=== PATIENT | male | born 1965 | race Caucasian/White ===

== ENCOUNTER 2020-07-16 10:09 | Outpatient (REF) | payer OTHER, SELFPAY ==
[2020-07-16 11:13] LABS: MANUAL DIFF FLAG NO
[2020-07-16 11:28] LABS: Basophils Absolute Auto 0.1 X10*3/uL (0.0-0.2); Basophils Percent Auto 0.6 % (0-2); Eosinophils Absolute Auto 0.2 X10*3/uL (0.0-0.4); Eosinophils Percent Auto 2.1 % (0-4); Hematocrit 44.8 % (42-52); Hemoglobin 13.7 g/dl (14.0-18.0); Imm Gran Abs Auto 0.08 X10*3/uL (0.00-0.03); Lymphocytes Absolute Auto 2.3 X10*3/uL (1.2-4.9); Lymphocytes Percent Auto 28.5 % (20-40); Mean Corpuscular HGB Conc 30.6 g/dl (31.0-36.0); Mean Corpuscular Hemoglobin 26.8 pg (27.0-33.0); Mean Corpuscular Volume 87.5 fL (80-98); Mean Platelet Volume 10.4 fL (9.4-12.4); Monocytes Absolute Auto 0.9 X10*3/uL (0.1-1.2); Monocytes Percent Auto 10.7 % (2-11); Neutrophils Absolute Auto 4.6 X10*3/uL (2.0-8.3); Neutrophils Percent Auto 57.1 % (45-73); Platelet Count 241 X10*3/uL (160-400); Red Blood Count 5.12 X10*6/uL (4.60-5.80)
[2020-07-16 11:43] LABS: Alanine Aminotransferase 28 U/L (0-40); Alkaline Phosphatase 121 U/L (39-117); Anion Gap 13 (12-20); Aspartate Amino Transferase 22 U/L (5-37); Bilirubin Total 0.4 mg/dL (0.0-1.0); Blood Urea Nitrogen 23 mg/dL (9-16); Calcium 8.6 mg/dL (8.4-10.2); Carbon Dioxide 26 mmol/L (22-29); Chloride 106 mmol/L (96-108); Cholesterol 152 mg/dL; Estimated Glomerular Filt Rate > 60; Glucose Fasting 120 mg/dL (60-99); HDL Cholesterol 39 mg/dL; Iron 45 mcg/dL (45-160); LDL Cholesterol Calculated 95 mg/dl; Percent Iron Saturation 13 % (15-50); Potassium 4.6 mmol/l (3.3-5.1); Sodium 140 mmol/L (135-145); Total Iron Binding Capacity 339 mcg/dL (228-428); Total Protein 6.7 g/dL (6.5-8.0); Triglycerides 92 mg/dL; Unsaturated Iron Binding 294 ug/dL
[2020-07-16 12:08] LABS: Ferritin 56 ng/mL (20-250); Prostate Specific Antigen < 0.05 ng/mL (<0.05-4.0); Vitamin D 25-OH Total 38.1 ng/mL (>30)
== END 2020-07-16 10:10 | disposition home or self-care (01) ==
LOC: HO.HMGCLDS 10:09
PROVIDERS: PCP Internal Medicine; Visit Provider Internal Medicine
DX: M1A.00X0 Idiopathic chronic gout, unspecified site, without tophus (tophi) (principal); Z00.00 Encounter for general adult medical examination without abnormal findings; I10 Essential (primary) hypertension; D50.9 Iron deficiency anemia, unspecified; E66.01 Morbid (severe) obesity due to excess calories
CPT/HCPCS: 36415; 80053; 80061; 82306; 82728; 83540; 84153; 85025

== ENCOUNTER → 2020-10-23 13:14 | Outpatient (BNVA) | payer OTHER, SELFPAY | PROVIDERS: PCP Internal Medicine; Visit Provider Physician Assistant | DX: M17.11 Unilateral primary osteoarthritis, right knee (principal) | CPT/HCPCS: 20610; J1040 ==

== ENCOUNTER → 2020-12-09 11:27 | Outpatient (BNVA) | payer OTHER, SELFPAY | PROVIDERS: PCP Internal Medicine; Visit Provider Physician Assistant | DX: M17.11 Unilateral primary osteoarthritis, right knee (principal); M17.12 Unilateral primary osteoarthritis, left knee | CPT/HCPCS: 20610; J7318 ==

== ENCOUNTER → 2021-01-22 10:32 | Outpatient (BNVA) | payer SELFPAY | PROVIDERS: PCP Internal Medicine; Visit Provider Physician Assistant Medical | DX: Z02.79 Encounter for issue of other medical certificate (principal) ==

== ENCOUNTER 2021-08-31 10:15 | Outpatient (REF) | payer OTHER, SELFPAY ==
--- NOTE | ~2021-08-31 | XR_ITS ---
EXAMINATION: XR KNEE, LEFT CLINICAL INFORMATION: Left knee pain COMPARISON: Radiographs knees standing AP 04/07/2020, left knee 04/27/2015 TECHNIQUE: Left knee is imaged in 3 views including AP view with weightbearing. FINDINGS: There is no fracture, dislocation, or arthropathy. No focal joint narrowing or erosive change or chondrocalcinosis. Suprapatellar bursa is within limits of normal thickness. Hoffa's fat pad appears normal. There is normal bony mineralization. No periostitis or destructive process. XR/XR knee LT 3V IMPRESSION: Unremarkable left knee.
== END 2021-08-31 10:16 | disposition home or self-care (01) ==
LOC: HO.HMGCX 10:15
PROVIDERS: PCP Internal Medicine; Visit Provider Nurse Practitioner Family
DX: M25.562 Pain in left knee (principal); M17.12 Unilateral primary osteoarthritis, left knee
CPT/HCPCS: 73562

== ENCOUNTER 2021-12-01 08:35 | Outpatient (REF) | payer OTHER, SELFPAY ==
[2021-12-01 11:25] LABS: MANUAL DIFF FLAG NO
[2021-12-01 11:39] LABS: Basophils Absolute Auto 0.1 X10*3/uL (0.0-0.2); Basophils Percent Auto 0.7 % (0-2); Eosinophils Absolute Auto 0.2 X10*3/uL (0.0-0.4); Eosinophils Percent Auto 2.8 % (0-4); Hematocrit 40.8 % (42.0-52.0); Hemoglobin 11.9 g/dl (14.0-18.0); Imm Gran Abs Auto 0.07 X10*3/uL (0.00-0.03); Imm Gran Pct Auto 0.8 % (0.0-0.4); Lymphocytes Absolute Auto 2.2 X10*3/uL (1.2-4.9); Lymphocytes Percent Auto 26.3 % (20-40); Mean Corpuscular HGB Conc 29.2 g/dl (31.0-36.0); Mean Corpuscular Hemoglobin 24.9 pg (27.0-33.0); Mean Corpuscular Volume 85.4 fL (80.0-98.0); Mean Platelet Volume 10.3 fL (9.4-12.4); Monocytes Absolute Auto 1.1 X10*3/uL (0.1-1.2); Monocytes Percent Auto 12.6 % (2-11); Neutrophils Absolute Auto 4.7 x10*3/uL (2.0-8.3); Neutrophils Percent Auto 56.8 % (45-73); Platelet Count 270 X10*3/uL (160-400); Red Blood Count 4.78 X10*6/uL (4.60-5.80); White Blood Count 8.3 X10*3/uL (4.8-10.8)
[2021-12-01 12:15] LABS: Alanine Aminotransferase 33 U/L (0-40); Albumin Level 3.6 g/dL (3.5-5.0); Alkaline Phosphatase 120 U/L (39-117); Anion Gap 12 (12-20); Aspartate Amino Transferase 26 U/L (5-37); Bilirubin Total 0.3 mg/dL (0.0-1.0); Blood Urea Nitrogen 19 mg/dL (9-16); Calcium 8.9 mg/dL (8.4-10.2); Carbon Dioxide 26 mmol/L (22-29); Chloride 108 mmol/L (96-108); Cholesterol 136 mg/dL; Estimated Glomerular Filt Rate > 60; Glucose Fasting 129 mg/dL (60-99); HDL Cholesterol 36 mg/dL; Iron 28 mcg/dL (45-160); LDL Cholesterol Calculated 84 mg/dl; Potassium 4.6 mmol/L (3.3-5.1); Sodium 141 mmol/L (135-145); Total Protein 6.2 g/dL (6.5-8.0); Triglycerides 83 mg/dL
[2021-12-01 12:48] LABS: Ferritin 23 ng/mL (20-250); Thyroid Stimulating Hormone 1.42 uIU/mL (0.32-4.0); Vitamin D 25-OH Total 39.4 ng/mL (>30)
[2021-12-01 12:49] LABS: Percent Iron Saturation 7 % (15-50); Total Iron Binding Capacity 390 mcg/dL (228-428); Unsaturated Iron Binding 362 ug/dL
[2021-12-01 13:26] LABS: PSA,Total (Free>4and<10) < 0.05 ng/mL (0.00-4.00)
== END 2021-12-01 08:36 | disposition home or self-care (01) ==
LOC: HO.LAB 08:35
PROVIDERS: PCP Internal Medicine; Visit Provider Internal Medicine
DX: Z00.00 Encounter for general adult medical examination without abnormal findings (principal); Z12.5 Encounter for screening for malignant neoplasm of prostate; E66.01 Morbid (severe) obesity due to excess calories; I10 Essential (primary) hypertension; M1A.00X0 Idiopathic chronic gout, unspecified site, without tophus (tophi); D50.9 Iron deficiency anemia, unspecified
CPT/HCPCS: 36415; 80053; 80061; 82306; 82728; 83540; 84153; 84443; 85025

== ENCOUNTER → 2021-12-15 07:58 | Outpatient (BNV) | payer BC, OTHER, SELFPAY | PROVIDERS: PCP Internal Medicine; Referring Provider Internal Medicine; Visit Provider Internal Medicine | DX: D50.9 Iron deficiency anemia, unspecified (principal) | CPT/HCPCS: 99203; 99213; 99214 ==

== ENCOUNTER → 2022-01-21 09:09 | Outpatient (BNVA) | payer SELFPAY | PROVIDERS: PCP Internal Medicine; Visit Provider Physician Assistant | DX: Z02.79 Encounter for issue of other medical certificate (principal) ==

== ENCOUNTER 2022-03-18 08:15 | Outpatient (REF) | payer OTHER, SELFPAY | END 2022-03-18 08:16 | disposition home or self-care (01) | LOC: HO.MDS 08:15 | PROVIDERS: PCP Internal Medicine; Visit Provider Internal Medicine | DX: D50.9 Iron deficiency anemia, unspecified (principal) | CPT/HCPCS: J1200; J1750; Q0163 ==

== ENCOUNTER 2022-05-30 08:08 | Outpatient (REF) | payer BC, SELFPAY ==
[2022-05-30 11:11] LABS: MANUAL DIFF FLAG NO
[2022-05-30 11:35] LABS: Basophils Absolute Auto 0.1 X10*3/uL (0.0-0.2); Basophils Percent Auto 0.7 % (0-2); Eosinophils Absolute Auto 0.3 X10*3/uL (0.0-0.4); Eosinophils Percent Auto 3.1 % (0-4); Hematocrit 42.8 % (42.0-52.0); Hemoglobin 12.9 g/dl (14.0-18.0); Imm Gran Abs Auto 0.08 X10*3/uL (0.00-0.03); Imm Gran Pct Auto 0.9 % (0.0-0.4); Lymphocytes Absolute Auto 2.9 X10*3/uL (1.2-4.9); Lymphocytes Percent Auto 32.7 % (20-40); Mean Corpuscular HGB Conc 30.1 g/dl (31.0-36.0); Mean Corpuscular Hemoglobin 25.6 pg (27.0-33.0); Mean Corpuscular Volume 85.1 fL (80.0-98.0); Mean Platelet Volume 10.6 fL (9.4-12.4); Monocytes Absolute Auto 0.9 X10*3/uL (0.1-1.2); Monocytes Percent Auto 9.7 % (2-11); Neutrophils Absolute Auto 4.7 x10*3/uL (2.0-8.3); Neutrophils Percent Auto 52.9 % (45-73); Platelet Count 263 X10*3/uL (160-400); Red Blood Count 5.03 X10*6/uL (4.60-5.80); Red Cell Distribution Width 18.4 % (11.0-16.0); White Blood Count 8.9 X10*3/uL (4.8-10.8)
[2022-05-30 11:42] LABS: Estimated Average Glucose 131 mg/dL; Hemoglobin A1c % 6.2 %
[2022-05-30 11:50] LABS: Alanine Aminotransferase 30 U/L (0-40); Albumin Level 3.8 g/dL (3.5-5.0); Alkaline Phosphatase 115 U/L (39-117); Anion Gap 14 (12-20); Aspartate Amino Transferase 21 U/L (5-37); Bilirubin Total 0.3 mg/dL (0.0-1.0); Blood Urea Nitrogen 24 mg/dL (9-16); Calcium 8.6 mg/dL (8.4-10.2); Carbon Dioxide 25 mmol/L (22-29); Chloride 106 mmol/L (96-108); Cholesterol 138 mg/dL; Estimated Glomerular Filt Rate > 60; Glucose Fasting 154 mg/dL (60-99); HDL Cholesterol 37 mg/dL; LDL Cholesterol Calculated 77 mg/dl; Potassium 4.6 mmol/L (3.3-5.1); Sodium 140 mmol/L (135-145); Total Protein 6.6 g/dL (6.5-8.0); Triglycerides 123 mg/dL
[2022-05-30 12:14] LABS: Thyroid Stimulating Hormone 1.58 uIU/mL (0.32-4.0); Vitamin D 25-OH Total 40.1 ng/mL (>30)
== END 2022-05-30 08:09 | disposition home or self-care (01) ==
LOC: HO.HMGCLDS 08:08
PROVIDERS: PCP Internal Medicine; Visit Provider Internal Medicine
DX: I10 Essential (primary) hypertension (principal); D50.9 Iron deficiency anemia, unspecified; M1A.00X0 Idiopathic chronic gout, unspecified site, without tophus (tophi); E66.01 Morbid (severe) obesity due to excess calories; E74.39 Other disorders of intestinal carbohydrate absorption
CPT/HCPCS: 36415; 80053; 80061; 82306; 83036; 84443; 85025

== ENCOUNTER 2022-09-01 09:24 | Outpatient (REF) | payer BC, SELFPAY ==
[2022-09-01 11:20] LABS: MANUAL DIFF FLAG NO
[2022-09-01 11:43] LABS: Basophils Absolute Auto 0.1 X10*3/uL (0.0-0.2); Basophils Percent Auto 0.6 % (0-2); Eosinophils Absolute Auto 0.2 X10*3/uL (0.0-0.4); Eosinophils Percent Auto 2.3 % (0-4); Hemoglobin 13.7 g/dl (14.0-18.0); Imm Gran Abs Auto 0.07 X10*3/uL (0.00-0.03); Imm Gran Pct Auto 0.8 % (0.0-0.4); Lymphocytes Percent Auto 22.1 % (20-40); Mean Corpuscular HGB Conc 30.4 g/dl (31.0-36.0); Mean Corpuscular Hemoglobin 26.4 pg (27.0-33.0); Mean Corpuscular Volume 86.7 fL (80.0-98.0); Mean Platelet Volume 10.4 fL (9.4-12.4); Monocytes Percent Auto 10.9 % (2-11); Neutrophils Absolute Auto 5.7 x10*3/uL (2.0-8.3); Neutrophils Percent Auto 63.3 % (45-73); Platelet Count 263 X10*3/uL (160-400); Red Blood Count 5.19 X10*6/uL (4.60-5.80); Red Cell Distribution Width 15.1 % (11.0-16.0)
[2022-09-01 11:53] LABS: Estimated Average Glucose 117 mg/dL; Hemoglobin A1c % 5.7 %
[2022-09-01 14:05] LABS: Alanine Aminotransferase 29 U/L (0-40); Albumin Level 3.9 g/dL (3.5-5.0); Alkaline Phosphatase 104 U/L (39-117); Anion Gap 11 (12-20); Aspartate Amino Transferase 22 U/L (5-37); Bilirubin Total 0.5 mg/dL (0.0-1.0); Blood Urea Nitrogen 20 mg/dL (9-16); Calcium 9.1 mg/dL (8.4-10.2); Carbon Dioxide 26 mmol/L (22-29); Chloride 108 mmol/L (96-108); Cholesterol 150 mg/dL; Estimated Glomerular Filt Rate > 60; Glucose Fasting 123 mg/dL (60-99); HDL Cholesterol 35 mg/dL; LDL Cholesterol Calculated 92 mg/dl; Potassium 4.3 mmol/L (3.3-5.1); Sodium 141 mmol/L (135-145); Thyroid Stimulating Hormone 0.93 uIU/mL (0.32-4.0); Total Protein 6.5 g/dL (6.5-8.0); Triglycerides 116 mg/dL
== END 2022-09-01 09:25 | disposition home or self-care (01) ==
LOC: HO.HMGCLDS 09:24
PROVIDERS: PCP Internal Medicine; Visit Provider Internal Medicine
DX: E74.39 Other disorders of intestinal carbohydrate absorption (principal)
CPT/HCPCS: 36415; 80053; 80061; 83036; 84443; 85025

== ENCOUNTER → 2023-01-17 09:06 | Outpatient (BNVA) | payer SELFPAY | PROVIDERS: PCP Internal Medicine; Visit Provider Internal Medicine | DX: Z02.79 Encounter for issue of other medical certificate (principal) ==

== ENCOUNTER 2023-07-05 09:42 | Outpatient (REF) | payer BC, SELFPAY ==
[2023-07-05 09:57] LABS: MANUAL DIFF FLAG NO
[2023-07-05 10:19] LABS: Basophils Absolute Auto 0.1 X10*3/uL (0.0-0.2); Basophils Percent Auto 0.7 % (0-2); Eosinophils Absolute Auto 0.3 X10*3/uL (0.0-0.4); Eosinophils Percent Auto 2.4 % (0-4); Hematocrit 42.6 % (42.0-52.0); Hemoglobin 12.6 g/dl (14.0-18.0); Imm Gran Abs Auto 0.09 X10*3/uL (0.00-0.03); Imm Gran Pct Auto 0.9 % (0.0-0.4); Lymphocytes Absolute Auto 2.5 X10*3/uL (1.2-4.9); Lymphocytes Percent Auto 24.2 % (20-40); Mean Corpuscular HGB Conc 29.6 g/dl (31.0-36.0); Mean Corpuscular Hemoglobin 23.9 pg (27.0-33.0); Mean Corpuscular Volume 80.7 fL (80.0-98.0); Mean Platelet Volume 10.2 fL (9.4-12.4); Monocytes Absolute Auto 1.1 X10*3/uL (0.1-1.2); Monocytes Percent Auto 10.7 % (2-11); Neutrophils Absolute Auto 6.4 x10*3/uL (2.0-8.3); Neutrophils Percent Auto 61.1 % (45-73); Platelet Count 291 X10*3/uL (160-400); Red Blood Count 5.28 X10*6/uL (4.60-5.80); Red Cell Distribution Width 16.4 % (11.0-16.0); White Blood Count 10.5 X10*3/uL (4.8-10.8)
[2023-07-05 10:29] LABS: Estimated Average Glucose 140 mg/dL; Hemoglobin A1c % 6.5 % (<6.0)
[2023-07-05 10:55] LABS: Alanine Aminotransferase 30 U/L (0-40); Albumin Level 3.9 g/dL (3.5-5.0); Alkaline Phosphatase 116 U/L (39-117); Anion Gap 14 (12-20); Aspartate Amino Transferase 25 U/L (5-37); Bilirubin Total 0.4 mg/dL (0.0-1.0); Blood Urea Nitrogen 21 mg/dL (9-16); Calcium 9.7 mg/dL (8.4-10.2); Carbon Dioxide 25 mmol/L (22-29); Chloride 106 mmol/L (96-108); Estimated Glomerular Filt Rate > 60; Glucose Fasting 140 mg/dL (60-99); Potassium 4.2 mmol/L (3.3-5.1); Sodium 141 mmol/L (135-145); Total Protein 7.1 g/dL (6.5-8.0)
[2023-07-05 11:12] LABS: Thyroid Stimulating Hormone 1.52 uIU/mL (0.32-4.0)
== END 2023-07-05 09:43 | disposition home or self-care (01) ==
LOC: HO.LAB 09:42
PROVIDERS: PCP Internal Medicine; Visit Provider Internal Medicine
DX: E66.01 Morbid (severe) obesity due to excess calories (principal); I10 Essential (primary) hypertension; M1A.00X0 Idiopathic chronic gout, unspecified site, without tophus (tophi); D50.9 Iron deficiency anemia, unspecified; E74.39 Other disorders of intestinal carbohydrate absorption
CPT/HCPCS: 36415; 80053; 83036; 84443; 85025

== ENCOUNTER 2023-08-16 09:55 | Outpatient (AMB) | payer BC, SELFPAY ==
--- NOTE | 2023-08-16 09:56 | MHC.OFFVIS ---
Intake Vital Signs 08/16/23 09:59 Height 5 ft 8 in Weight 385 lb BMI 58.5 BP 124/82 Blood Pressure Location Lt brachial Position Sitting Pulse 58 Pulse Source Pulse Oximeter Pulse Oximetry (%) 97 Oxygen Delivery Method Room Air Intake Visit Reasons: ofelia Intake Note: pt is here to talk about sleep apnea, Subsorter Required: No Allergies Iodinated Contrast Media [IV CONTRAST] Allergy (Mild, Verified 08/16/23 10:28) HIVES IVP Dye Allergy (Intermediate, Uncoded 08/16/23 10:28) hives Dye [facility] Blue 1 Allergy (Unknown, Uncoded 08/16/23 10:28) hives Medication List - Last Reconciled 08/16/23 by Kylie Barajas MD allopurinol 300 mg PO DAILY amlodipine 10 mg PO DAILY [centrum multivitamin 1 tab PO DAILY] lisinopril 20 mg PO BID metoprolol tartrate 50 mg PO BID [Vitamin C 1 tab PO DAILY] [Vitamin D3 50,000 multiple units PO 2XW] Do you need a note to return to daycare/school/sports/work: No HPI ofelia HPI Details This 58 years old very pleasant gentleman is being seen for the 1st time in relation to his morbid obesity and sleep apnea. He has been grossly obese throughout his adult life. He has not participated in any regular weight management program. Last year he was started on Dulaglutide injections hoping to make him lose weight. But he developed serious side effects and had to stop it . He is not in favor of undergoing any bariatric surgery. He is trying to lose weight on his own with dietary restriction. 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 He claims that he sleeps good, he always sleeps on his right side and lateral position. According to his he may do some snoring, He sleeps about 6 hours per night, does not get enough sleep because of his late hours of work. He does feel tired during the daytime. After lunch he has tendency to doze off. But he has not fallen asleep in appropriately at any time. This gentleman underwent extensive surgical procedures about 20 years ago, in [place], due to complicated surgery for renal stone. He also has had chronic low-grade anemia and due to malabsorption of iron. Now he is being treated with iron infusions every 6-12 months, lately his hemoglobin/hematocrit is staying stable. He has mild hypertension and borderline type 2 diabetes mellitus. He is nonsmoker, quit more than 20 years ago. He does not have any respiratory problem. He has painful knees due to osteoarthritis, has had intra-articular steroid injections , He is not able to walk much or climb any stairs. [facility] Medical History (Updated 08/16/23 @ 11:31 by Kylie Barajas MD) Somnolence, daytime Snoring OFELIA (obstructive sleep apnea) Morbid obesity Kidney stone on right side Deviated septum COVID LVH (left ventricular hypertrophy) Incisional hernia Plantar fasciitis Varicella zoster Renal lithiasis Vitamin D deficiency Iron deficiency anemia Obesity HTN (hypertension) Surgical History S/P left knee arthroscopy Social History Household Members: Spouse Housing: House Are you a primary career development coordinator/teacher to a significant other at home: No Alcohol intake: current Alcohol intake frequency: holidays/special occasions only Patient Tobacco Use Status: Former Tobacco user Tobacco use type: Cigarette Cigarette Packs Per Day: 1.5 Years Smoked: 14 service: No Current occupational status: employed Review of Systems Const All systems reviewed & are unremarkable except as noted in HPI and below Eyes Reports no additional complaints ENT Reports nasal obstruction (Has had septoplasty in the past) Card Denies chest pain at rest, Denies irregular heart rhythm, Denies leg edema and Reports dyspnea (Mild on exertion) Resp Denies cough, Reports dyspnea (Mild on exertion) and Denies wheezing GI Reports no additional complaints Reports no additional complaints Musc Reports arthralgias (Both knees) Skin/Breast Reports system reviewed and no additional complaints, except as documented Neuro Reports no additional complaints Psych Reports no additional complaints Endo Reports no additional complaints Omar/Lymph Reports no additional complaints Aller/Immun Reports no additional complaints and Denies wheezing Physical Exam Vital Signs: Last Vital Signs Pulse 58 08/16/23 09:59 BP 124/82 08/16/23 09:59 Pulse Ox 97 08/16/23 09:59 Oxygen Delivery Method Room Air 08/16/23 09:59 BMI result Body Mass Index 58.5 He is visibily morbidly obese, otherwise looks healthy Const General: comfortable, no acute distress, alert and awake Orientation/consciousness: patient oriented x3 HEENT Head: Yes normal to inspection General nose exam: No nasal polyps present and No nasal discharge present Face and sinus: Yes sinuses nontender Mouth: oropharynx abnormals (Oropharynx is crowded, Mallampati class 3) Throat: Yes posterior oropharynx normal Eyes General: appearance normal, both eyes and all related structures Neck Neck: Yes normal visual inspection, Yes no lymphadenopathy, Yes trachea midline, Yes no JVD and Yes other (Neck circumference 18-1/2 inch) Thyroid: Thyroid normal Chest Chest palpation & inspection: normal inspection of the chest, normal palpation of entire chest wall and no tenderness Resp Effort & Inspection: normal respiratory effort Auscultation: clear to auscultation bilaterally, no crackles and no wheezes Cardio Palpation: normal PMI Rate: regular rate Rhythm: regular rhythm Heart sounds: no gallops and no murmurs Peripheral pulses: Peripheral pulses 2+ throughout GI Palpation (GI): Soft to palpation, nontender, No hepatosplenomegaly present, no masses and Other GI palpation findings present (Abdomen is grossly obese and protuberant, there are multiple surgical scars) Auscultation: normal bowel sounds Back/Spine/Pelvis Thoracic/Lumbar Spine: thoracic and lumbar spine normal to inspection Skin General skin exam: no rashes or lesions noted Neuro General: patient oriented x3 and no focal motor deficits Cranial nerves: Yes CN's II-XII intact bilaterally Extrem General: Yes normal to inspection, Yes no clubbing, cyanosis or edema and Yes no calf tenderness Psych Appearance: grossly normal and well kempt Speech and movement: Normal speech and movement present Assessment & Plan Assessment & Plan (1) Morbid obesity: Comment: BMI= 58.5 HE IS FULLY AWARE. OF THIS PROBLEM. DOES NOT WANT TO JOIN WEIGHT MANAGEMENT PROGRAM AND ABSOLUTELY IS NOT IN FAVOR OF HAVING ANY BARIATRIC SURGERY. IMPORTANCE OF WEIGHT REDUCTION EXPLAINED TO HIM. Code(s): E66.01 - Morbid (severe) obesity due to excess calories (2) OFELIA (obstructive sleep apnea): Comment: BECAUSE OF HIS SUPER MORBID OBESITY OFELIA IS HIGHLY SUSPECTED. HE DOES ADMIT OF SNORING, AND SOME DAYTIME SOMNOLENCE. HOME-BASED SLEEP STUDY IS ORDERED. WILL SEE HIM AFTER THE HOME-BASED SLEEP STUDY. Code(s): G47.33 - Obstructive sleep apnea (adult) (pediatric) Orders: Orders RT home sleep study Today E66.01 - Morbid (severe) obesity due to excess calories, R06.83 - Snoring, R40.0 - Somnolence Coding Level of Care Code New Pt Level 4 (48406) Diagnoses Morbid obesity E66.01 OFELIA (obstructive sleep apnea) G47.33
[2023-08-16 09:59] VITALS: BP 124/82; PULSE 58; O2SAT 97; BMI 58.5
== END 2023-08-16 10:27 | disposition home or self-care (01) ==
PROVIDERS: PCP Internal Medicine; Referring Provider Internal Medicine; Visit Provider Internal Medicine
DX: E66.01 Morbid (severe) obesity due to excess calories (principal); G47.33 Obstructive sleep apnea (adult) (pediatric)
CPT/HCPCS: 99204

== ENCOUNTER → 2023-08-16 09:55 | Outpatient (BNVA) | payer BC, SELFPAY | PROVIDERS: PCP Internal Medicine; Referring Provider Internal Medicine; Visit Provider Internal Medicine ==

== ENCOUNTER 2023-11-07 08:57 | Outpatient (REF) | payer BC, SELFPAY ==
[2023-11-07 11:18] LABS: MANUAL DIFF FLAG NO
[2023-11-07 11:31] LABS: Basophils Absolute Auto 0.1 X10*3/uL (0.0-0.2); Basophils Percent Auto 0.8 % (0-2); Eosinophils Absolute Auto 0.3 X10*3/uL (0.0-0.4); Hematocrit 38.9 % (42.0-52.0); Hemoglobin 11.8 g/dl (14.0-18.0); Imm Gran Abs Auto 0.08 X10*3/uL (0.00-0.03); Imm Gran Pct Auto 0.9 % (0.0-0.4); Lymphocytes Absolute Auto 2.4 X10*3/uL (1.2-4.9); Lymphocytes Percent Auto 26.2 % (20-40); Mean Corpuscular HGB Conc 30.3 g/dl (31.0-36.0); Mean Corpuscular Hemoglobin 24.7 pg (27.0-33.0); Mean Corpuscular Volume 81.4 fL (80.0-98.0); Mean Platelet Volume 10.5 fL (9.4-12.4); Monocytes Absolute Auto 1.1 X10*3/uL (0.1-1.2); Monocytes Percent Auto 12.1 % (2-11); Neutrophils Absolute Auto 5.2 x10*3/uL (2.0-8.3); Platelet Count 287 X10*3/uL (160-400); Red Blood Count 4.78 X10*6/uL (4.60-5.80); Red Cell Distribution Width 16.4 % (11.0-16.0); White Blood Count 9.1 X10*3/uL (4.8-10.8)
[2023-11-07 11:43] LABS: Estimated Average Glucose 126 mg/dL
[2023-11-07 12:11] LABS: Alanine Aminotransferase 23 U/L (0-40); Albumin Level 3.7 g/dL (3.5-5.0); Alkaline Phosphatase 110 U/L (39-117); Anion Gap 13 (12-20); Aspartate Amino Transferase 20 U/L (5-37); Bilirubin Total 0.3 mg/dL (0.0-1.0); Blood Urea Nitrogen 18 mg/dL (9-16); Calcium 9.1 mg/dL (8.4-10.2); Carbon Dioxide 26 mmol/L (22-29); Chloride 108 mmol/L (96-108); Cholesterol 140 mg/dL (<200); Estimated Glomerular Filt Rate > 60; Glucose Fasting 140 mg/dL (60-99); HDL Cholesterol 34 mg/dL (>40); Iron 28 mcg/dL (45-160); LDL Cholesterol Calculated 86 mg/dL (<100); Percent Iron Saturation 8 % (15-50); Potassium 4.5 mmol/L (3.3-5.1); Sodium 142 mmol/L (135-145); Total Iron Binding Capacity 334 mcg/dL (228-428); Total Protein 6.7 g/dL (6.5-8.0); Triglycerides 102 mg/dL (<150); Unsaturated Iron Binding 306 ug/dL; Uric Acid 3.6 mg/dL (3.4-7.0)
[2023-11-07 12:20] LABS: Ferritin 18 ng/mL (20-250)
== END 2023-11-07 08:58 | disposition home or self-care (01) ==
LOC: HO.HMGCLDS 08:57
PROVIDERS: PCP Internal Medicine; Visit Provider Internal Medicine
DX: E66.01 Morbid (severe) obesity due to excess calories (principal); I10 Essential (primary) hypertension; M1A.00X0 Idiopathic chronic gout, unspecified site, without tophus (tophi); D50.9 Iron deficiency anemia, unspecified; E74.39 Other disorders of intestinal carbohydrate absorption
CPT/HCPCS: 36415; 80053; 80061; 82728; 83036; 83540; 84550; 85025

== ENCOUNTER → 2023-12-06 09:03 | Outpatient (REF) | payer BC, SELFPAY | LOC: HO.SL 09:03 | PROVIDERS: PCP Internal Medicine; Visit Provider Internal Medicine | DX: G47.33 Obstructive sleep apnea (adult) (pediatric) (principal); E66.01 Morbid (severe) obesity due to excess calories; R06.83 Snoring; R40.0 Somnolence | CPT/HCPCS: 95806 ==

== ENCOUNTER → 2023-12-06 09:18 | Outpatient (BNV) | payer BC, SELFPAY | PROVIDERS: PCP Internal Medicine; Visit Provider Internal Medicine | DX: G47.33 Obstructive sleep apnea (adult) (pediatric) (principal) | CPT/HCPCS: 95806 ==

== ENCOUNTER 2023-12-20 10:28 | Outpatient (AMB) | payer BC, SELFPAY ==
[2023-12-20 10:33] VITALS: BP 110/72; PULSE 58; O2SAT 97; BMI 60.0
--- NOTE | 2023-12-20 10:33 | MHC.OFFVIS ---
Intake Vital Signs 12/20/23 10:33 Height 5 ft 8 in Weight 394 lb 10.039 oz BMI 60.0 BP 110/72 Blood Pressure Location Lt brachial Position Sitting Pulse 58 Pulse Source Pulse Oximeter Pulse Oximetry (%) 97 Oxygen Delivery Method Room Air Intake Visit Reasons: Obstructive sleep apnea Intake Note: pt is here for follow up of sleep study Hematology Oncology Consultant Required: No Allergies Iodinated Contrast Media [IV CONTRAST] Allergy (Mild, Verified 12/20/23 10:40) HIVES IVP Dye Allergy (Intermediate, Uncoded 12/20/23 10:40) hives Dye [facility] Blue 1 Allergy (Unknown, Uncoded 12/20/23 10:40) hives Medication List - Last Reconciled 12/20/23 by Kylie Barajas MD allopurinol 300 mg PO DAILY amlodipine 10 mg PO DAILY [centrum multivitamin 1 tab PO DAILY] lisinopril 20 mg PO BID metoprolol tartrate 50 mg PO BID [Vitamin C 1 tab PO DAILY] [Vitamin D3 50,000 multiple units PO 2XW] Do you need a note to return to daycare/school/sports/work: No HPI Obstructive sleep apnea HPI Details 58 YEARS OLD VERY PLEASANT GENTLEMAN WHO IS A CASE OF SUPER MORBID OBESITY, COMES FOR FOLLOW-UP AFTER HIS SLEEP STUDY. HE CONTINUES TO HAVE DIFFICULTY IN SLEEPING DUE TO FREQUENT AWAKENING, AND DOES HAVE SOME DAYTIME FATIGUE AND SLEEPINESS. HE IS NOT ABLE TO LOSE MUCH WEIGHT. THE HOME-BASED SLEEP STUDY IS ABNORMAL AND WOULD BE DESCRIBED BELOW [facility] Medical History (Updated 12/20/23 @ 12:10 by Kylie Barajas MD) Nocturnal hypoxemia due to obesity Somnolence, daytime Snoring DAISY (obstructive sleep apnea) Morbid obesity Kidney stone on right side Deviated septum COVID LVH (left ventricular hypertrophy) Incisional hernia Plantar fasciitis Varicella zoster Renal lithiasis Vitamin D deficiency Iron deficiency anemia Obesity HTN (hypertension) Surgical History S/P left knee arthroscopy Social History Household Members: Spouse Housing: House Are you a primary sub acute care nurse to a significant other at home: No Alcohol intake: current Alcohol intake frequency: holidays/special occasions only Patient Tobacco Use Status: Former Tobacco user Tobacco use type: Cigarette Cigarette Packs Per Day: 1.5 Years Smoked: 14 service: No Current occupational status: employed Review of Systems Const All systems reviewed & are unremarkable except as noted in HPI and below Eyes Reports no additional complaints ENT Reports nasal obstruction (Has had septoplasty in the past) Card Denies chest pain at rest, Denies irregular heart rhythm, Denies leg edema and Reports dyspnea (Mild on exertion) Resp Denies cough, Reports dyspnea (Mild on exertion) and Denies wheezing GI Reports no additional complaints Reports no additional complaints Musc Reports arthralgias (Both knees) Skin/Breast Reports system reviewed and no additional complaints, except as documented Neuro Reports no additional complaints Psych Reports no additional complaints Endo Reports no additional complaints Omar/Lymph Reports no additional complaints Aller/Immun Reports no additional complaints and Denies wheezing Physical Exam Vital Signs: Last Vital Signs Pulse 58 12/20/23 10:33 BP 110/72 12/20/23 10:33 Pulse Ox 97 12/20/23 10:33 Oxygen Delivery Method Room Air 12/20/23 10:33 BMI result Body Mass Index 60.0 He is visibily morbidly obese, otherwise looks healthy Const General: comfortable, no acute distress, alert and awake Orientation/consciousness: patient oriented x3 HEENT Head: Yes normal to inspection General nose exam: No nasal polyps present and No nasal discharge present Face and sinus: Yes sinuses nontender Mouth: oropharynx abnormals (Oropharynx is crowded, Mallampati class 3) Throat: Yes posterior oropharynx normal Eyes General: appearance normal, both eyes and all related structures Neck Neck: Yes normal visual inspection, Yes no lymphadenopathy, Yes trachea midline, Yes no JVD and Yes other (Neck circumference 18-1/2 inch) Thyroid: Thyroid normal Chest Chest palpation & inspection: normal inspection of the chest, normal palpation of entire chest wall and no tenderness Resp Effort & Inspection: normal respiratory effort Auscultation: clear to auscultation bilaterally, no crackles and no wheezes Cardio Palpation: normal PMI Rate: regular rate Rhythm: regular rhythm Heart sounds: no gallops and no murmurs Peripheral pulses: Peripheral pulses 2+ throughout GI Palpation (GI): Soft to palpation, nontender, No hepatosplenomegaly present, no masses and Other GI palpation findings present (Abdomen is grossly obese and protuberant, there are multiple surgical scars) Auscultation: normal bowel sounds Back/Spine/Pelvis Thoracic/Lumbar Spine: thoracic and lumbar spine normal to inspection Skin General skin exam: no rashes or lesions noted Neuro General: patient oriented x3 and no focal motor deficits Cranial nerves: Yes CN's II-XII intact bilaterally Extrem General: Yes normal to inspection, Yes no clubbing, cyanosis or edema and Yes no calf tenderness Psych Appearance: grossly normal and well kempt Speech and movement: Normal speech and movement present Results Reviewed Results Reviewed: HOME-BASED SLEEP STUDY ON 12/06/2023. FINDINGS ARE REVIEWED. WITH PATIENT TOTAL SLEEP TIME AHI 7. SUPINE POSITION AHI 15 SNORING FOR 21% OF THE SLEEP TIME. NOCTURNAL HYPOXEMIA WITH AVERAGE O2 SAT 90% LOWEST O2 SAT 73% AND O2 SAT BELOW 88% FOR 28 MINUTES , INDICATING SLEEP-RELATED NOCTURNAL HYPOXEMIA Assessment & Plan Assessment & Plan (1) Morbid obesity: Comment: BMI= 60 .0 HE IS FULLY AWARE. OF THIS PROBLEM. DOES NOT WANT TO JOIN WEIGHT MANAGEMENT PROGRAM AND ABSOLUTELY IS NOT IN FAVOR OF HAVING ANY BARIATRIC SURGERY. IMPORTANCE OF WEIGHT REDUCTION EXPLAINED TO HIM. Code(s): E66.01 - Morbid (severe) obesity due to excess calories Plan: ABOVE (2) DAISY (obstructive sleep apnea): Comment: SLEEP STUDY CONFIRMS THAT HE DOES HAVE OBSTRUCTIVE SLEEP APNEA, IT IS MILD, TOTAL SLEEP TIME AHI 7.0. SUPINE POSITION AHI IS 15 , AND HE SLEPT FOR 75 MINUTES IN THE SUPINE POSITION. ALONG WITH THAT HE DOES HAVE NOCTURNAL HYPOXEMIA DUE TO SLEEP-RELATED HYPOVENTILATION. Code(s): G47.33 - Obstructive sleep apnea (adult) (pediatric) Plan: ORDINARILY I WOULD RECOMMEND CONSERVATIVE MEASURES INCLUDING AGGRESSIVE WEIGHT REDUCTION AND POSITION THERAPY. HOWEVER IN HIS CASE THE POTENTIAL FOR LOSING WEIGHT IN THE NEAR FUTURE IS VERY SMALL, AND HE MAY NOT FULLY COMPLY WITH POSITION THERAPY. ALSO DUE TO ASSOCIATED NOCTURNAL HYPOXEMIA, I THINK IT IS PREFERABLE FOR HIM TO USE CPAP. THIS WAS DISCUSSED WITH HIM THOROUGHLY, OF COURSE HE IS SOMEWHAT DISAPPOINTED , AND IS SOMEWHAT APPREHENSIVE ABOUT USING THE CPAP. BUT I WAS ABLE TO CONVINCE HIM TO USE THE CPAP AND AT LEAST TRY, WHILE HE WILL BE DOING HIS BEST TO LOSE WEIGHT. HENCE THE CPAP WITH AUTO PAP MODE AND PRESSURE SETTING OF 6-20 CM IS BEING ORDERED. HE WILL GET MORE INSTRUCTIONS ABOUT THE USAGE WHEN HE GETS HIS EQUIPMENT. AND WOULD BE MONITORED CLOSELY. (3) Nocturnal hypoxemia due to obesity: Comment: HIS O2 SAT WAS BELOW 88% 28 MINUTES AND THE AVERAGE O2 SAT WAS RELATIVELY ON THE LOW SIDE, 90%. Code(s): E66.9 - Obesity, unspecified; G47.36 - Sleep related hypoventilation in conditions classified elsewhere Plan: I THINK WITH THE USE OF CPAP THE HYPOXEMIA WILL BE CORRECTED. ONCE HE STARTS USING CPAP REGULARLY WE WILL DO AN OVERNIGHT OXIMETRY RECORDING TO MAKE SURE, THERE IS NO RESIDUAL HYPOXEMIA. Coding Level of Care Code Est Pt Level 3 (57350) Diagnoses Morbid obesity E66.01 DAISY (obstructive sleep apnea) G47.33 Nocturnal hypoxemia due to obesity E66.9; G47.36
== END 2023-12-20 11:02 | disposition home or self-care (01) ==
PROVIDERS: PCP Internal Medicine; Visit Provider Internal Medicine
DX: E66.01 Morbid (severe) obesity due to excess calories (principal); G47.33 Obstructive sleep apnea (adult) (pediatric); E66.9 Obesity, unspecified; G47.36 Sleep related hypoventilation in conditions classified elsewhere
CPT/HCPCS: 99213

== ENCOUNTER → 2023-12-28 10:07 | Outpatient (REF) | payer BC, SELFPAY | LOC: HO.SL 10:07 | PROVIDERS: PCP Internal Medicine; Visit Provider Internal Medicine | DX: Z13.89 Encounter for screening for other disorder (principal) ==

== ENCOUNTER 2024-01-11 11:00 | Outpatient (RCR) | payer BC, SELFPAY ==
[2023-12-20 09:05] VITALS: BP 112/63; PULSE 57; RESP 20; TEMP 36.5; O2SAT 97; BMI 57.0
[2023-12-20] MEDS: Iron Sucrose Complex 200 MG in 0.9 % Sodium Chloride 100 ML 440 MG IV (09:11)
[2023-12-28 10:09] VITALS: BP 147/83; PULSE 58; RESP 20; TEMP 36.1; O2SAT 97
[2023-12-28] MEDS: Iron Sucrose Complex 200 MG in 0.9 % Sodium Chloride 100 ML 440 MG IV (10:20)
[2024-01-04 10:06] VITALS: BP 119/75; PULSE 57; RESP 20; TEMP 36.2; O2SAT 97
[2024-01-04] MEDS: Iron Sucrose Complex 200 MG in 0.9 % Sodium Chloride 100 ML 440 MG IV (10:19)
[2024-01-04] MEDS: 0.9 % Sodium Chloride Flush 10 ML SYRINGE 5 ML IVFLUSH (10:37)
[2024-01-11 10:24] VITALS: BP 143/82; PULSE 59; RESP 20; TEMP 36.3; O2SAT 97
[2024-01-11] MEDS: 0.9 % Sodium Chloride Flush 10 ML SYRINGE 5 ML IVFLUSH ×2 (10:31→10:48)
[2024-01-11] MEDS: Iron Sucrose Complex 200 MG in 0.9 % Sodium Chloride 100 ML 440 MG IV (10:31)
== END 2024-01-11 11:36 | disposition home or self-care (01) ==
LOC: HO.INF 11:00
PROVIDERS: Visit Provider Internal Medicine
DX: D50.9 Iron deficiency anemia, unspecified (principal)
CPT/HCPCS: 96365; 96374; J1756

== ENCOUNTER 2024-01-17 14:19 | Outpatient (REF) | payer BC, SELFPAY ==
--- NOTE | ~2024-01-17 | XR_ITS ---
EXAMINATION: CR RIGHT KNEE. CR LEFT KNEE. CR RIGHT HIP. CLINICAL INFORMATION: Pain. COMPARISON: Left knee films dated 08/31/2021. Bilateral knee films dated 04/07/2020.. Two-view abdomen dated 09/20/2016. TECHNIQUE: 2 upright views of the right knee. 2 upright views of the left knee. AP and frog-leg lateral views of the right hip. FINDINGS: Right knee: There is no acute fracture or dislocation. Mild joint space narrowing and minimal spurring is seen in the medial and patellofemoral compartments with relative preservation of the lateral joint space height. No joint calcifications or significant knee joint effusion. Patellar tendon shadow are intact. No significant prepatellar soft tissue swelling. Left knee: No acute fracture or dislocation. Severe joint space narrowing and mild spurring in the medial femoral compartment and mild joint space narrowing and spurring in the patellofemoral compartment seen with preservation of the lateral femoral compartment. Findings have progressed compared to the prior exam. No joint or soft tissue calcifications. No significant knee joint effusion or prepatellar soft tissue swelling. Right hip: No acute fracture or dislocation. Minimal superior joint space narrowing and spurring seen at the right hip joint, similar to the previous exam. No joint calcifications. Calcification seen projected over the lower right pelvis, possibly vascular. Included right sacroiliac joint intact and unremarkable. XR/XR hip RT min 2V IMPRESSION: * No acute fracture of the right knee or left knee or right hip. * Mild degenerative changes in the medial and patellofemoral compartments of the right knee. * Severe degenerative change in the medial femoral compartment of the left knee and mild degenerative changes in the patellofemoral compartment of the left knee. * Mild degenerative changes in the right hip joint, similar to the previous exam.
== END 2024-01-17 14:20 | disposition home or self-care (01) ==
LOC: HO.HMGCX 14:19
PROVIDERS: PCP Internal Medicine; Visit Provider Internal Medicine
DX: M25.551 Pain in right hip (principal); M25.562 Pain in left knee; M25.561 Pain in right knee
CPT/HCPCS: 73502; 73560

== ENCOUNTER → 2024-01-18 09:12 | Outpatient (BNVA) | payer SELFPAY | PROVIDERS: PCP Internal Medicine; Visit Provider Physician Assistant Medical | DX: Z02.79 Encounter for issue of other medical certificate (principal) ==

== ENCOUNTER → 2024-02-14 11:21 | Outpatient (BNVA) | payer BC, SELFPAY | PROVIDERS: PCP Internal Medicine; Visit Provider Internal Medicine ==

== ENCOUNTER 2024-06-28 08:29 | Outpatient (REF) | payer BC, SELFPAY ==
[2024-06-28 10:15] LABS: MANUAL DIFF FLAG NO
[2024-06-28 10:27] LABS: Basophils Absolute Auto 0.1 X10*3/uL (0.0-0.2); Basophils Percent Auto 0.5 % (0-2); Eosinophils Absolute Auto 0.2 X10*3/uL (0.0-0.4); Eosinophils Percent Auto 2.1 % (0-4); Hematocrit 43.6 % (42.0-52.0); Hemoglobin 13.4 g/dl (14.0-18.0); Imm Gran Abs Auto 0.06 X10*3/uL (0.00-0.03); Imm Gran Pct Auto 0.6 % (0.0-0.4); Lymphocytes Absolute Auto 2.3 X10*3/uL (1.2-4.9); Lymphocytes Percent Auto 24.4 % (20-40); Mean Corpuscular HGB Conc 30.7 g/dl (31.0-36.0); Mean Corpuscular Hemoglobin 26.2 pg (27.0-33.0); Mean Corpuscular Volume 85.3 fL (80.0-98.0); Mean Platelet Volume 9.9 fL (9.4-12.4); Monocytes Percent Auto 10.9 % (2-11); Neutrophils Absolute Auto 5.9 x10*3/uL (2.0-8.3); Neutrophils Percent Auto 61.5 % (45-73); Platelet Count 283 X10*3/uL (160-400); Red Blood Count 5.11 X10*6/uL (4.60-5.80); Red Cell Distribution Width 15.2 % (11.0-16.0); White Blood Count 9.5 X10*3/uL (4.8-10.8)
[2024-06-28 10:59] LABS: Alanine Aminotransferase 20 U/L (0-40); Albumin Level 3.8 g/dL (3.5-5.0); Alkaline Phosphatase 80 U/L (39-117); Anion Gap 11 (12-20); Aspartate Amino Transferase 16 U/L (5-37); Bilirubin Total 0.3 mg/dL (0.0-1.0); Blood Urea Nitrogen 24 mg/dL (9-16); Carbon Dioxide 24 mmol/L (22-29); Chloride 110 mmol/L (96-108); Cholesterol 148 mg/dL (<200); Estimated Glomerular Filt Rate > 60; Glucose Fasting 99 mg/dL (60-99); HDL Cholesterol 40 mg/dL (>40); Iron 31 mcg/dL (45-160); LDL Cholesterol Calculated 96 mg/dL (<100); Percent Iron Saturation 11 % (15-50); Sodium 141 mmol/L (135-145); Total Iron Binding Capacity 294 mcg/dL (228-428); Total Protein 6.8 g/dL (6.5-8.0); Triglycerides 64 mg/dL (<150); Unsaturated Iron Binding 263 ug/dL
[2024-06-28 11:15] LABS: Ferritin 56 ng/mL (20-250); Thyroid Stimulating Hormone 1.51 uIU/mL (0.32-4.0)
== END 2024-06-28 08:30 | disposition home or self-care (01) ==
LOC: HO.HMGCLDS 08:29
PROVIDERS: PCP Internal Medicine; Visit Provider Internal Medicine
DX: M1A.00X0 Idiopathic chronic gout, unspecified site, without tophus (tophi) (principal); E66.01 Morbid (severe) obesity due to excess calories; I10 Essential (primary) hypertension; D50.9 Iron deficiency anemia, unspecified
CPT/HCPCS: 36415; 80053; 80061; 82728; 83540; 84443; 85025

== ENCOUNTER 2024-07-02 11:09 | Outpatient (REF) | payer BC, SELFPAY ==
[2024-07-02 13:48] LABS: Appearance Urine Cloudy; Color Urine Yellow; Glucose Urine UA Negative (Negative); Leukocyte Esterase Urine Small (1+) (Negative); Nitrite Urine Negative (Negative); PH 7.5 (5.0-9.0); Specific Gravity - Urine 1.025 (1.005-1.025); UMIC TRIGGER UA YES; Urine Blood Large (3+) (Negative); Urine Ketones Negative (Negative); Urine Protein 100 (2+) mg/dL (Neg-Trace)
[2024-07-02 13:54] LABS: WBC Urine >50 /HPF (0-5)
[2024-07-02 13:55] LABS: Bacteria Urine 3+ (None Seen); Hyaline Casts Urine 0-2 /LPF (0-2); RBC Urine >20 /HPF (0-2); Squamous Epithelial Cell Urine 0-2 /HPF (0-2)
== END 2024-07-02 11:10 | disposition home or self-care (01) ==
LOC: HO.HMGCLDS 11:09
PROVIDERS: PCP Internal Medicine; Visit Provider Internal Medicine
DX: R39.9 Unspecified symptoms and signs involving the genitourinary system (principal)
CPT/HCPCS: 81001; 87086

== ENCOUNTER 2024-11-06 09:18 | Outpatient (AMB) | payer BC, SELFPAY ==
--- NOTE | 2024-11-06 09:20 | A.OFFPC_ITS ---
Vital Signs 11/06/24 09:31 Height 5 ft 8 in Weight 312 lb BMI 47.4 BP 122/70 Blood Pressure Location Rt brachial Pulse 64 Pulse Source Pulse Oximeter Temp 97.2 F Pulse Oximetry (%) 97 Oxygen Delivery Method Room Air Intake Visit Reasons: weight management f/u Intake Note: no other issues he did have iron check by Dr. Ho Allergies Iodinated Contrast Media [IV CONTRAST] Allergy (Intermediate, Verified 11/06/24 09:44) HIVES blue dye Allergy (Verified 11/06/24 09:44) Hives Medication List - Last Reconciled 11/06/24 by Mahnaz Laurent PA-C allopurinol 300 mg PO DAILY amlodipine 10 mg PO DAILY [centrum multivitamin 1 tab PO DAILY] ergocalciferol (vitamin D2) 1,250 mcg PO 2XW 90 days lisinopril 20 mg PO BID metoprolol tartrate 50 mg PO BID tirzepatide (Mounjaro) 15 mg (0.5 mL) subcut QWEEK [Vitamin C 1 tab PO DAILY] [facility] Medical History (Updated 11/06/24 @ 09:47 by Mahnaz Laurent PA-C) Morbid obesity with BMI of 45.0-49.9, adult Chronic low back pain Nocturnal hypoxemia due to obesity Somnolence, daytime Snoring DAISY (obstructive sleep apnea) Morbid obesity Kidney stone on right side Deviated septum COVID LVH (left ventricular hypertrophy) Incisional hernia Plantar fasciitis Varicella zoster Renal lithiasis Vitamin D deficiency Iron deficiency anemia Obesity HTN (hypertension) Surgical History S/P left knee arthroscopy Social History Household Members: Spouse Housing: House Are you a primary adult daycare coordinator to a significant other at home: No Alcohol intake: current Alcohol intake frequency: holidays/special occasions only Patient Tobacco Use Status: Former Tobacco user Tobacco use type: Cigarette Cigarette Packs Per Day: 1.5 Years Smoked: 14 service: No Current occupational status: employed Physical exam (Primary Care) Vital Signs: Last Vital Signs Temp 97.2 F 11/06/24 09:31 Pulse 64 11/06/24 09:31 BP 122/70 11/06/24 09:31 Pulse Ox 7 L 11/06/24 09:31 Care Plan Goal for BP management: 130/80 at goal BMI result Body Mass Index 47.4 BMI Assessment/Plan discussion: High BMI High, discussed plan: lifestyle, weight reduction, dietary, physical activity and alcohol moderation Tobacco/Smoking Status: Tobacco use Status Patient Tobacco Use Status Former Tobacco user 11/06/24 09:30 Tobacco use type Cigarette 11/06/24 09:30 Coding Level of Care Code Est Pt Level 4 (89177) Complex EM visit Add On G2211 Diagnoses Obesity E66.9 HTN (hypertension) I10 Vitamin D deficiency E55.9 DAISY (obstructive sleep apnea) G47.33 Morbid obesity E66.01 Iron deficiency anemia D50.9 Chronic low back pain M54.50; G89.29 Osteoarthritis of left knee M17.12 Osteoarthritis of right knee M17.11 Nocturnal hypoxemia due to obesity E66.9; G47.36 Somnolence, daytime R40.0 Snoring R06.83 LVH (left ventricular hypertrophy) I51.7 Morbid obesity with BMI of 45.0-49.9, adult E66.01; Z68.42 Assessment & Plan Assessment & Plan (1) Obesity: Code(s): E66.9 - Obesity, unspecified Category: Medical Plan: Patient to continue current diet and exercise regimen. Patient to continue majora 15 mg weekly. Patient has lost approximately 80 lb since last year. Condition is chronic and stable continue to monitor. (2) HTN (hypertension): Code(s): I10 - Essential (primary) hypertension Category: Medical Plan: Blood pressure at goal under 130/80. Patient currently on amlodipine 10 mg daily, lisinopril 20 mg b.i.d. and metoprolol 50 mg b.i.d.. Condition is chronic and stable will continue to monitor. (3) Vitamin D deficiency: Code(s): E55.9 - Vitamin D deficiency, unspecified Category: Medical Plan: Patient currently on vitamin-D supplement by weekly. Condition is chronic and stable continue to monitor. (4) DAISY (obstructive sleep apnea): Comment: SLEEP STUDY CONFIRMS THAT HE DOES HAVE OBSTRUCTIVE SLEEP APNEA, IT IS MILD, TOTAL SLEEP TIME AHI 7.0. SUPINE POSITION AHI IS 15 , AND HE SLEPT FOR 75 MINUTES IN THE SUPINE POSITION. ALONG WITH THAT HE DOES HAVE NOCTURNAL HYPOXEMIA DUE TO SLEEP-RELATED HYPOVENTILATION. Code(s): G47.33 - Obstructive sleep apnea (adult) (pediatric) Category: Medical Plan: Condition is chronic and stable continue to monitor. (5) Morbid obesity: Comment: BMI= 60 .0 HE IS FULLY AWARE. OF THIS PROBLEM. DOES NOT WANT TO JOIN WEIGHT MANAGEMENT PROGRAM AND ABSOLUTELY IS NOT IN FAVOR OF HAVING ANY BARIATRIC SURGERY. IMPORTANCE OF WEIGHT REDUCTION EXPLAINED TO HIM. Code(s): E66.01 - Morbid (severe) obesity due to excess calories Category: Medical Plan: Patient to continue current diet and exercise regimen. Patient to continue majora 15 mg weekly. Patient has lost approximately 80 lb since last year. Condition is chronic and stable continue to monitor. (6) Iron deficiency anemia: Code(s): D50.9 - Iron deficiency anemia, unspecified Category: Medical Plan: Patient currently being followed by Dr. Ho. Patient receives iron infusions once yearly. Recently had labs on 09/30/2024 and hemoglobin 13.3. Hematocrit 42.0. Iron was 30 mcg. Total iron saturation was 12%. Patient's ferritin was 85 within normal range. Patient to continue following up with hematology. Condition is chronic and stable any to monitor. (7) Chronic low back pain: Code(s): M54.50 - Low back pain, unspecified; G89.29 - Other chronic pain Category: Medical Plan: Condition is chronic and stable continue to monitor. (8) Osteoarthritis of left knee: Code(s): M17.12 - Unilateral primary osteoarthritis, left knee Category: Medical Plan: Condition is chronic and stable continue to monitor. (9) Osteoarthritis of right knee: Code(s): M17.11 - Unilateral primary osteoarthritis, right knee Category: Medical Plan: Condition is chronic and stable continue to monitor. (10) Nocturnal hypoxemia due to obesity: Comment: HIS O2 SAT WAS BELOW 88% 28 MINUTES AND THE AVERAGE O2 SAT WAS RELATIVELY ON THE LOW SIDE, 90%. Code(s): E66.9 - Obesity, unspecified; G47.36 - Sleep related hypoventilation in conditions classified elsewhere Category: Medical Plan: Patient to continue current diet and exercise regimen. Patient to continue majora 15 mg weekly. Patient has lost approximately 80 lb since last year. Condition is chronic and stable continue to monitor. (11) Somnolence, daytime: Code(s): R40.0 - Somnolence Category: Medical Plan: Condition is chronic and stable continue to monitor. (12) Snoring: Code(s): R06.83 - Snoring Category: Medical Plan: Condition is chronic and stable continue to monitor. (13) LVH (left ventricular hypertrophy): Code(s): I51.7 - Cardiomegaly Category: Medical Plan: Condition is chronic and stable continue to monitor. (14) Morbid obesity with BMI of 45.0-49.9, adult: Code(s): E66.01 - Morbid (severe) obesity due to excess calories; Z68.42 - Body mass index [BMI] 45.0-49.9, adult Category: Medical Plan: Patient to continue current diet and exercise regimen. Patient to continue majora 15 mg weekly. Patient has lost approximately 80 lb since last year. Condition is chronic and stable continue to monitor. Plan Plan - Monitor blood pressure regularly and report significant fluctuations. - Attend upcoming lab appointments for a complete blood work evaluation. - Continue using prescribed medications and follow the cortisone injection schedule for knee pain. - Maintain balanced nutrition and hydration to aid in overall health and well- being. - Seek medical attention if experiencing any new or worsening symptoms. - Schedule a follow-up appointment in six months or sooner if needed. Orders: Orders Comprehensive [place]. Panel Fast Today Z00.00 - Encounter for general adult medical examination without abnormal findings TSH reflex Free T4 Today Z00.00 - Encounter for general adult medical examination without abnormal findings PSA,Total (Free>4and<10) Today Z00.00 - Encounter for general adult medical examination without abnormal findings Vitamin B12 and Folate Today Z00.00 - Encounter for general adult medical examination without abnormal findings C Reactive Protein Today Z00.00 - Encounter for general adult medical examination without abnormal findings Lipid Panel Today Z00.00 - Encounter for general adult medical examination without abnormal findings Hemoglobin A1c Today Z00.00 - Encounter for general adult medical examination without abnormal findings Liver Panel Today Z00.00 - Encounter for general adult medical examination without abnormal findings Magnesium Today Z00.00 - Encounter for general adult medical examination without abnormal findings Vitamin B1 Today Z00.00 - Encounter for general adult medical examination without abnormal findings Vitamin D 25-OH Total Today Z00.00 - Encounter for general adult medical examination without abnormal findings Scribe Plan - Not visible on output: History of Present Illness The patient is a 59-year-old male presenting for a follow-up on his chronic medical conditions. 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 This led to urinary tract damage, necessitating major reconstructive surgery and an extended hospitalization due to sepsis. Recurrent calculi have included both uric acid and calcium stones. Despite surgical interventions and past nephrostomy management, intermittent episodes of anemia persist, likely secondary to chronic, unresolved bleeding sources. The patient receives annual iron infusions, as oral supplementation is not tolerated. He reports marked weight loss of approximately 83 pounds since initiating Mounjaro treatment. While previously weighing 395 pounds, his current weight is 312.8 pounds. Past medical care includes numerous colonoscopies without definitive sources of bleeding, and nephrologic and infectious disease specialists have been involved. Regular blood pressure management is maintained with amlodipine, lisinopril, and metoprolol. His knees are afflicted by osteoarthritis with [id number] pathology, managed with quarterly corticosteroid injections. He also experiences fluctuant hypertension managed through comprehensive antihypertensive therapy, with close monitoring due to stress-related job activities. Lipids and A1c values have been favorable upon recent evaluation. 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 - Family: Long-term marriage of 29 years; spouse works within the same business structure. - Weight Management: Successful weight loss with medication, current ongoing dietary measures. - Exercise and Activity: Reduced due to bilateral knee osteoarthritis. - Recent Travels: Recently returned from [place]; plans to visit [place] in six weeks. Review of Systems - Cardiovascular: Denies chest pain, palpitations. - Gastrointestinal: Denies abdominal pain and bowel movement difficulties. - Musculoskeletal: Reports chronic knee pain. - Psychiatric: No report of mood disorders. - Respiratory: Denies dyspnea and cough. Physical Exam Appearance: Alert. Oriented X3. No acute distress. Head: Normal external exam. Normocephalic. Atraumatic. Eyes: Pupils are equal, round, and reactive to light. Extraocular movements intact. Conjunctiva and sclera normal. Eyelids normal. Ears: External auditory canal normal. Tympanic membranes normal. Throat: Pharynx normal. Uvula midline. Moist mucous membranes. Neck: Normal inspection. Neck supple. Full range of motion. No adenopathy. Thyroid Normal. No meningeal signs. No neck mass noted. Cardiovascular: Normal heart rate and rhythm. Heart sound normal. No murmurs noted. Pulses normal throughout. Respiratory: No respiratory distress. Painless inspiration. Breath sounds normal. No wheezes/rales/rhonchi noted. Chest nontender. No accessory muscle usage noted or decreased air movement noted. Abdomen: Soft and nontender. Bowel sounds normal in all 4 quadrants. No distention noted. No organomegaly noted. No visible injury noted. Back: No costovertebral angle tenderness. Full range of motion noted. Skin: Skin warm and dry. Normal skin color. Normal skin turgor. No rashes/lesions/lacerations noted. Extremities: No lower extremity edema. Extremities exhibit normal range of motion. Extremities nontender. Neuro: Oriented X 3. No motor deficit. No sensory deficit. Reflexes normal. Results - Labs: Hemoglobin 13.3 g/dL, Ferritin 85 ng/mL, Iron 30 ?g/dL, and Saturation percentage 12%. - Thyroid-stimulating hormone (TSH), Prostate-specific antigen (PSA), and Vitamin levels to be checked. Plan - Monitor blood pressure regularly and report significant fluctuations. - Attend upcoming lab appointments for a complete blood work evaluation. - Continue using prescribed medications and follow the cortisone injection schedule for knee pain. - Maintain balanced nutrition and hydration to aid in overall health and well- being. - Seek medical attention if experiencing any new or worsening symptoms. - Schedule a follow-up appointment in six months or sooner if needed. Patient was informed and verbally consented to the use of an ambient scribe for clinic note documentation during this visit. Discussion Notes We discussed the patient's current management plan in detail, particularly emphasizing the continued necessity for iron infusions due to poor oral tolerance. We addressed his significant progress in weight reduction attributed to Mounjaro and the potential for further antihypertensive medication adjustments due to improved blood pressure control. A thorough review of laboratory findings showed stable hemoglobin and ferritin levels, affirming the appropriateness of the current regimen. Future evaluations have been scheduled to maintain vigilance over his chronic conditions, with specific attention to lipid and iron levels. The patient is advised to seek earlier consultation if flare-ups in medical status occur. Travel and lifestyle modifications, consistent with health maintenance, were also underscored. Patient Instructions - Monitor blood pressure regularly and report significant fluctuations. - Attend upcoming lab appointments for a complete blood work evaluation. - Continue using prescribed medications and follow the cortisone injection schedule for knee pain. - Maintain balanced nutrition and hydration to aid in overall health and well- being. - Seek medical attention if experiencing any new or worsening symptoms. - Schedule a follow-up appointment in six months or sooner if needed.
[2024-11-06 09:31] VITALS: BP 122/70; PULSE 64; TEMP 36.2; O2SAT 97; BMI 47.4
--- OUTSIDE RECORDS SUMMARY | 2024-11-06 09:31 | XMS_ITS ---
Author Organization Ti Pérez DO, FACP Address [address] [place] [phone] Care Team Providers Care Life Scientist Name Role Phone Ti Pérez Primary Care Provider ALLERGIES Allergen (clinical drug ingredient) Drug/Non Drug Allergy documented on EMR Reaction Allergy Type Onset Date Status IVP dyes hives Drug Allergy Active REASON FOR VISIT Follow up obesity MEDICATIONS Medication SIG (Take, Route, Frequency, Duration) Notes Start Date End Date Status Vitamin D (Ergocalciferol) 30201 UNIT 1 capsule Orally Twice a week for 30 day(s) 07/08/2024 Active amLODIPine Besylate 10 MG 1 tablet Orall y Once a day for 30 day(s) 07/08/2024 Active Tirzepatide 12.5 MG/0.5ML 0.5 ml Subcuta neous Once a week 11/27/2023 Active Allopurinol 300 MG 1 tablet Orally Once a day Active Metoprolol Tartrate 50 MG 1 tablet Orall y Twice a day Active amLODIPine Besylate 10 MG 1 tablet Orally Once a day Active LORazepam 1 MG 1 tablet as needed O rally Once a day 05/31/2024 Active Lisinopril 20 MG 1 tablet Orally Twic e a day Active Sildenafil Citrate 50 MG 1 tablet as nee ded Orally Once a day 06/10/2020 Active Vitamin D (Ergocalciferol) 1.25 MG (10624 UT) 1 capsule Orally Twice a week Active Vitamin C 500 MG 1 tablet Orally Once a day Active Centrum 1 tablet Orally Once a day Active SOCIAL HISTORY Tobacco Use: Social History Observation Description Date Details (start date - stop date) Former Smoker NA - NA Sex Assigned At : Social History Observation Description Sex Assigned At Unknown Tobacco Use/Smoking Question Answer Notes Patient is a former smoker How long has it been since y ou last smoked? > 10 years Additional Findings: Tobacco Non-User Fo rmer smoker, currently using no form of tobacco Alcohol Screen Question Answer Notes Did you have a drink contain ing alcohol in the past year? Yes How often did you have a dri nk containing alcohol in the past year? Monthly or less (1 point) How many drinks did you have on a typical day when you were drinking in the past year? 1 or 2 drinks (0 point) How often did you have 6 or more drinks on one occasion in the past year? Never (0 point) Points 1 Interpretation Negative VITAL SIGNS BMI 50.47 kg/m2 07/08/2024 Height 68.0 in 07/08/2024 Weight 332 lbs 07/08/2024 Encounters Encounter Location Date Provider Diagnosis Ti Pérez DO, [address] [phone] 07/08/2024 Ti Pérez Morbid obesity due t o excess calories E66.01 ; Essential hypertension I10 ; Idiopathic chronic gout without tophus, unspecified site [id number].[id number] and Iron deficiency anemia, unspecified iron deficiency anemia type D50.9 ASSESSMENTS Encounter Date Diagnosis Assessment Notes Treatment Notes Treatment Clinical Notes 07/08/2024 Morbid obesity due to excess calories (ICD-10 - E66.01) Doing very well on tirzepatide 07/08/2024 Essential hypertension (ICD-10 - I10) Keep a log of BP readings and report in with readings. May be able to downregulate his medication in light of 60 pound weight loss. 07/08/2024 Idiopathic chronic gout without tophus, unspecified site (ICD-10 - M1A.00X0) 07/08/2024 Iron deficiency anemia, unspecified iron deficiency anemia type (ICD-10 - D50.9) PLAN OF TREATMENT Medication Medication Name Sig Start Date Stop Date Notes Vitamin D (Ergocalciferol) 34945 UNIT 1 capsule Orally Twice a week for 30 day(s) 07/08/2024 amLODIPine Besylate 10 MG 1 tablet Orall y Once a day for 30 day(s) 07/08/2024 Tirzepatide 12.5 MG/0.5ML 0.5 ml Subcuta neous Once a week 11/27/2023 Allopurinol 300 MG 1 tablet Orally Once a day Metoprolol Tartrate 50 MG 1 tablet Orally Twice a day LORazepam 1 MG 1 tablet as needed O rally Once a day 05/31/2024 Lisinopril 20 MG 1 tablet Orally Twice a day Sildenafil Citrate 50 MG 1 tablet as nee ded Orally Once a day 06/10/2020 Vitamin C 500 MG 1 tablet Orally Once a day Centrum 1 tablet Orally Once a day Treatment Notes Assessment Notes Morbid obesity due to excess calories Do ing very well on tirzepatide Essential hypertension Keep a log of BP readings and report in with readings. May be able to downregulate his medication in light of 60 pound weight loss. Next Appt Details Follow Up: 6 Months, Reason: follow up visit Progress Notes * Examination Category Sub-Category Detail Notes General Examination PSYCH: alert, orien lucy, cognitive function intact History and Physical Notes * HPI (History of Present Illness) Category Sub-Category Detail Notes New symptom(s) Telehealth Location of provider:: Pro foote's home address Location of patient:: Address listed in demographics for today's visit Patient identification confirmed using:: Name, Telehealth method:: Telephone only. Didi ent not visible to care provider. Consent:: Patient verbally c onsented to treatment, Patient verbally consented to billing insurance company, Patient informed of any privacy concerns related to method of visit Total time spent with patient (mins): 32 Disclaimer: This Telehealth visit is being conducted per CDC recommendations due to the COVID-19 outbreak. Depression Screening PHQ-9 Little inte rest or pleasure in doing things: Not at all Feeling down, depressed, or hopeless: No t at all Trouble falling or staying asleep, or sl eeping too much: Not at all Feeling tired or having little energy: N ot at all Poor appetite or overeating: Not at all Feeling bad about yourself o r that you are a failure, or have let yourself or your family down: Not at all Trouble concentrating on thi ngs, such as reading the newspaper or watching television: Not at all Moving or speaking so slowly that other people could have noticed; or the opposite, being so fidgety or restless that you have been moving around a lot more than usual: Not at all Thoughts that you would be b mehnaz off or of hurting yourself in some way: Not at all Total Score: 0 Interpretation and Intervention Depression Marya vasquez Findings: Negative Follow-Up for Depression: : Review of PH Q-9 found negative result; no follow-up needed Fall Risk Fall History Have you had two or more fal ls in the past year?: No Have you had any falls with injury in th e past year?: No Fall Risk Assessment:: No falls in the p ast year Communication Needs PCMH Communication Needs - PCM Dre sandoval Impairment?: No Vision Impairment?: Yes wears glasses or reading Cognitive Impairment?: No SDOH Questions SDOH Questions In the past year have you been worried about losing your housing?: No In the past year have you or any family members you live with been unable to get any of the following when it was really needed? Check all that apply:: None
--- OUTSIDE RECORDS SUMMARY | 2024-11-06 09:31 | XMS_ITS | Data Portability ---
Author Organization [place] - [facility], [facility] [place] Address [address] [place] [address] Care Team Providers Care Tag And Label Cutter Name Role Phone WILMA PEDRO Primary Care Provider Assessment Encounter Date Assessment Date Assessment LastModified by Organization Details LastModified Time 02/07/2024 02/07/2024 I am seeing the patient today under the supervision of Dr Haji who was available but who did not see the patient. jose alberto Not available 02/07/2024 13:33:51 05/31/2024 05/31/2024 I am seeing the patient today under the supervision of Dr Haji who was available but who did not see the patient. jose alberto Not available 05/31/2024 13:16:23 08/30/2024 08/30/2024 I am seeing the patient today under the supervision of Dr Haji who was available but who did not see the patient. jose alberto Not available 08/30/2024 14:13:47 Plan of Treatment Reminders Order Date Submit Date Provider Last Modified By Organization Details Last Modified Time Details Appointments RECHECK 15 2024 01:30P Oliver Brooks PA-C Not available Not available Not available Lab None recorded . Referral None recorded . Procedures None recorded . Surgeries None recorded . Imaging None recorded . Medication Orders None recorded . Patient TargetsNo targets recorded. Patient InstructionsNo instructions recorded. Reason for Referral None Reported. Results Created Date Observation Date Name Description Value Unit Range Abnormal Flag Note LastModifiedBy Organization Detail LastModifiedTime 05/17/20 24 09/12/2021 imagi ng/di agnos tic resul t No observ ation record ed. [email or web address] Not Available 04/20 20:39:33 Result Notes None recorded. Problems Name Problem SNOMED Code Status Onset Date Resolution Date Notes Provider Name and Address Organization Details Recorded Time Trochanteri c bursitis of right hip 3799918054892 00 Active 2023 Karan Brooks PA-C [address], [place], [address], [facility] 4 14:13:56 Osteoarthri tis of knee 155768261 Active 2023 Karan Brooks PA-C [address], [facility] [place], [address], [facility] 4 06:32:35 Bilateral osteoarthri tis of knees 8878556669681 07 Active 2023 Karan Brooks PA-C [address], [place], [address], [facility] 4 13:33:45 Problem Notes None recorded. Procedures Surgical History Date Name Laterality Status Provider Name and Address Organization Details Recorded Time 4 JZHip Inj completed Karan Brooks PA-C [address], [place], [address], [facility] 08/30/2024 14:13:42 4 JZKNEE INJ Bryce completed Karan Brooks PA-C [address], [place], [address], [facility] 08/30/2024 14:13:38 4 JZHip Inj completed Karan Brooks PA-C [address], [place], [address], [facility] 05/31/2024 13:16:12 4 JZKNEE INJ Bryce completed Karan Brooks PA-C [address], [place], [address], [facility] 05/31/2024 13:16:04 4 Zilretta Knee Injection, Bilateral completed Karan Brooks PA-C [address], [place], [address], [place] [facility] 02/07/2024 13:33:38 Imaging Results Imaging Date Name Status LastModified by Organiz ation Details LastModified Time 09/12/2021 imaging/diag nostic result completed [email or web address] Information not available 05/17/2024 20:39:33 Procedure Notes None recorded. Medical Equipment None Reported. Allergies Allergen ID Allergen Name Allergen Category Reaction Reaction Severity Criticality Documentation Date Start Date Code Code System Note Provider Name and Address Organization Details Recorded Time 35805 Iodinated contrast media (substanc e) medicatio n Not available Not available Not available 11/20/20232020 10572 2003 SNOMED Aller gyNam e: 'ivp dye'; Not Available [facility] 12:45:03 Medications Name Sig Start Date Stop Date Status Note LastModified by Organization Details LastModified Time azithromyci n 250 mg tablet 02/06 completed Not Available Not Available Not Available meloxicam 15 mg tablet TAKE 1 TABLET BY MOUTH DAILY 05/31 completed Not Available Not Available Not Available lisinopril 20 mg tablet TAKE 1 TABLET BY MOUTH TWICE DAILY active Not Available Not Available No t Available moxifloxaci n 400 mg tablet TAKE 1 TABLET BY MOUTH EVERY DAY FOR 10 DAYS 05/31 completed Not Available Not Available Not Available ciprofloxac in 500 mg tablet TAKE 1 TABLET BY MOUTH TWICE DAILY FOR 7 DAYS active Not Available Not Available No t Available tramadol 50 mg tablet TAKE 1 TABLET BY MOUTH EVERY 6 HOURS AFTER MEALS active Not Available Not Available No t Available amlodipine 10 mg tablet TAKE 1 TABLET BY MOUTH EVERY DAY active Not Available Not Available No t Available metoprolol tartrate 50 mg tablet TAKE 1 TABLET BY MOUTH TWICE DAILY active Not Available Not Available No t Available allopurinol 300 mg tablet TAKE 1 TABLET BY MOUTH DAILY active Not Available Not Available No t Available ergocalcife rol (vitamin D2) 1,250 mcg (50,000 unit) capsule TAKE ONE CAPSULE BY MOUTH TWICE WEEKLY active Not Available Not Available No t Available lorazepam 1 mg tablet TAKE 1 TABLET BY MOUTH DAILY NEEDED active Not Available Not Available No t Available scopolamine 1 mg over [address] 1 PATCH ON THE SKIN BEHIND THE EAR NEEDED ONCE EVERY 3 DAYS 05/31 completed Not Available Not Available Not Available oxycodone HCl-oxycodo ne-ASA as directed 1-2 TABLETS EVERY 4-[address] WHILE TAKING THIS MEDICATIO N 03/02 completed Statu s: 'Disc ontin ued'; Not Available Not Available Not Available Mounjaro 7.5 mg/0.5 mL subcutaneou s pen injector ADMINISTE R 7.5 MG UNDER THE SKIN 1 TIME A WEEK active Not Available Not Available No t Available Mounjaro 5 mg/0.5 mL subcutaneou s pen injector ADMINISTE R 5 MG UNDER THE SKIN 1 TIME A WEEK active Not Available Not Available No t Available Mounjaro 15 mg/0.5 mL subcutaneou s pen injector active Not Available Not Available Not Available Mounjaro 10 mg/0.5 mL subcutaneou s pen injector ADMINISTE R 10 MG UNDER THE SKIN 1 TIME A WEEK active Not Available Not Available No t Available Mounjaro 12.5 mg/0.5 mL subcutaneou s pen injector ADMINISTE R 12.5 MG UNDER THE SKIN 1 TIME A WEEK active Not Available Not Available No t Available Mounjaro 2.5 mg/0.5 mL subcutaneou s pen injector ADMINISTE R 2.5 MG UNDER THE SKIN 1 TIME A WEEK active Not Available Not Available No t Available Vitals Date Recorded Body height Body mass index (BMI) Body weight Provider Name and Address Organization Details Last Updated DateTime 02/07/2024 172.72 cm 56 kg/m2 629921.99 g VINICIUS CARRION [facility] 02/07/2024 13:04:57 Date Recorded Body height Body mass index (BMI) Body weight Provider Name and Address Organization Details Last Updated DateTime 05/31/2024 172.72 cm 56 kg/m2 696106.99 g Vik Mitchell [facility] 05/31/2024 12:59:47 Date Recorded Body height Body mass index (BMI) Body weight Provider Name and Address Organization Details Last Updated DateTime 08/30/2024 172.72 cm 56 kg/m2 789218.99 g Vik Mitchell [facility] 08/30/2024 13:55:53 Social History Question Answer Notes LastModified by Organizat ion Details LastModified Time Tobacco Smoking Status Never Smoker VINICIUS CARRION marcial [facility] 01/31/2024 12:54:35 What Is Your Relationship Status? [email or web address] Information not available 01/31/2024 Do You Use Any Illicit Or Recreational Drugs? No [email or web address] Information not available 01/31/2024 Sex: Unknown Functional Status None recorded. Mental Status None recorded. Family History Nothing Reported. Medical History Condition Response Allergies/Hayfever N Coronary Artery Disease N Anxiety/Depression N Breathing or lung disorders N Emphysema N Nerve Disorders N Thyroid Problems N COPD N Pacemaker N Anemia Y Kidney/Bladder Problems Y Vascular Disease N Heart Trouble N Heart Attack (IA) N Gastrointestinal Disease N Cholesterol N Diabetes N Autoimmune disease N Bleeding Disorder N Orthotics N Arthritis N Seizures/Epilepsy N Blood Clot N AIDS/HIV N Congestive Heart Failure (CHF) N Acid Reflux (GERD) N Cancer N Stroke N Asthma N Circulation Problems N Peripheral Vascular Disease N Sleep Apnea N Hepatitis N Heart Disease N Rheumatoid Arthritis N Arrhythmia N Pulmonary Embolism N Headaches N Fibromyalgia N Hypertension Y Osteoporosis N Past Encounters Encounter ID Performer Location Encounter Start Date Encounter Closed Date Diagnosis/Indication Diagnosis SNOMED-CT Code Diagnosis ICD10 Code Diagnosis Note [id number] ISIAH Rodriguez [address] [place] [address] 02/07/2024 12:44:28 02/29/2024 13:15:18 Bilateral osteoarthritis of knees 7411713035 11776 M17.0 [id number] ISIAH Rodriguez [address] [place] [address] 05/31/2024 12:51:08 06/24/2024 11:35:51 Bilateral osteoarthritis of knees 0059526279 44310 M17.0 Trochanter ic bursitis of right hip 1652530871 93411 M70.61 [id number] ISIAH Rodriguez [address] [place] [address] 08/30/2024 13:50:37 09/24/2024 07:51:59 Bilateral osteoarthritis of knees 9776076502 02775 M17.0 Trochanter ic bursitis of right hip 9583844099 41237 M70.61 Health Concerns Section Related Observation LastModified by Organization Detai ls LastModified Time None Recorded Concern Status LastModified by Organization Details LastModified Time None Recorded Advance Directives Directive None Recorded Payers Encounter Date Sequence Insurance Name Policy Number Policy Ferris Covered Member ID Ferris Member ID Guarantor Name 02/07/2024 1 [place] [facility] [place] [id number] Jessie Kwok [id number] Helio Kwok 05/31/2024 1 [place] [facility] [place] [place] [id number] Jessie Kwok [id number] Helio Kwok 08/30/2024 1 [place] [facility] [place] [place] [id number] Jessie Kwok [id number] [facility]io [facility]
--- OUTSIDE RECORDS SUMMARY | 2024-11-06 09:31 | XMS_ITS ---
Author Organization Ti Pérez DO [facility] Address [address] [place], [place] [id number] Care Team Providers Care Practice Representative Name Role Phone Ti Pérez Primary Care Provider REASON FOR VISIT Refill Rx's MEDICATIONS Medication SIG (Take, Route, Frequency, Duration) Notes Start Date End Date Status Tirzepatide 12.5 MG/0.5ML 0.5 ml Subcuta neous Once a week for 30 days 11/27/2023 Active LORazepam 1 MG 1 tablet as needed O rally Once a day for 30 days 07/29/2024 Active Encounters Encounter Location Date Provider Diagnosis Ti Pérez DO, [address] [id number] 07/29/2024 Ti Pérez Morbid obesity due to excess calories E66.01 ASSESSMENTS Encounter Date Diagnosis Assessment Notes Treatment Notes Treatment Clinical Notes 07/29/2024 Morbid obesity due to excess calories (ICD-10 - E66.01) PLAN OF TREATMENT Medication Medication Name Sig Start Date Stop Date Notes Tirzepatide 12.5 MG/0.5ML 0.5 ml Subcuta neous Once a week for 30 days 11/27/2023 LORazepam 1 MG 1 tablet as needed O rally Once a day for 30 days 07/29/2024
--- OUTSIDE RECORDS SUMMARY | 2024-11-06 09:31 | XMS_ITS | Patient Health Record ---
Author Organization [facility] Address [address] [place] [address] Care Team Providers Care Mortising Machine Operator Name Role Phone Elisa (RETIRED) Ti RICH Primary Care Provid er Unavailable Ti Dent Unavailable [phone] ALLERGIES Allergen (clinical drug ingredient) Drug/Non Drug Allergy documented on EMR Reaction Allergy Type Onset Date Status IV dye (uncoded) Unknown Allergy Act ean REASON FOR REFERRAL No Information MEDICATIONS Medication SIG (Take, Route, Frequency, Duration) Notes Start Date End Date Status Vitamin D (Ergocalciferol) 48758 UNIT TK 1 C PO TWICE WEEKLY Oral for 84 Active Vitamin C 500 MG Orally twice a day Active Centrum - Orally Active amLODIPine Besylate 10 MG TK 1 T PO QD Oral for 90 Act ean Metoprolol Tartrate 50 MG TK 1 T PO BID Oral for 90 Active Iron 325 (65 Fe) MG 1 tablet Orally Once a day Not-Taking Lisinopril 20 MG TK 1 T PO BID Oral f or 90 Active SOCIAL HISTORY Sex Assigned At : Social History Observation Description Sex Assigned At Unknown PROBLEMS Problem Type ICD Code Onset Dates Problem Status W/U Status Risk SNOMED Code Notes Problem Diarrhea, unspecified type (R19.7) Active confirmed 51654872 Problem Heme + stool (R19.5) Active confirmed 59377441 PLAN OF TREATMENT Future Test Test Name Order Date COLONOSCOPY 10/14/2016 Insurance Providers Payer Name Payer Address Payer Phone Subscriber Number Group Number Insured Name Patient Relationship to Insured Coverage Start Date Coverage End Date [facility] [employer] [address] [place] [address] [phone] [id number] TALISHAOTTO GARZACARMEN Self - patient is the insured MEDICAL (GENERAL) HISTORY Medical History History ICD Code Iron deficiency anemia-- Col onoscopy and EGD 12-06-2004--- both of these exams were nonrevealing--the upper endoscopy was normal, including duodenal biopsies and the colonoscopy was negative-he had a negative small bowel video capsule study in 2006-he did have documented heme-positive stool at that time. Kidney stones with surgery as below Denies AL,DM,CVA,Lung disease,renal dise ase HTN Surgical History Surgery Date(Month/Year) Numerous surgeries related t o a kidney stone and right ureteral disease in 2001 at the [facility] Surgery for a deviated septum
--- OUTSIDE RECORDS SUMMARY | 2024-11-06 09:31 | XMS_ITS ---
Author Organization Ti Pérez DO [facility] Address [address], [place] [id number] Care Team Providers Care Seat Scooper Machine Name Role Phone Ti Pérez Primary Care Provider [phone] REASON FOR VISIT Refill MEDICATIONS Medication SIG (Take, Route, Fr equency, Duration) Notes Start Date End Date Status Tirzepatide 15 MG/0.5ML 0.5 ml Subcutane ous Once a week for 30 days 11/27/2023 Active LORazepam 1 MG 1 tablet as needed O rally Once a day for 30 days 08/25/2024 Active Encounters Encounter Location Date Provider Diagnosis Ti Pérez DO, [address] [id number] 08/24/2024 Ti Pérez Morbid obesity due to excess calories E66.01 ASSESSMENTS Encounter Date Diagnosis Assessment Notes Treatment Notes Treatment Clinical Notes 08/24/2024 Morbid obesity due to excess calories (ICD-10 - E66.01) PLAN OF TREATMENT Medication Medication Name Sig Start Date Stop Date Notes Tirzepatide 15 MG/0.5ML 0.5 ml Subcutane ous Once a week for 30 days 11/27/2023 LORazepam 1 MG 1 tablet as needed O rally Once a day for 30 days 08/25/2024
== END 2024-11-06 09:45 | disposition home or self-care (01) ==
LOC: HO.HMCSH 09:18
PROVIDERS: PCP Internal Medicine; Visit Provider Physician Assistant Medical
DX: I10 Essential (primary) hypertension (principal); E66.9 Obesity, unspecified; E66.01 Morbid (severe) obesity due to excess calories; Z68.42 Body mass index [BMI] 45.0-49.9, adult; E55.9 Vitamin D deficiency, unspecified; G47.33 Obstructive sleep apnea (adult) (pediatric); D50.9 Iron deficiency anemia, unspecified; M54.50 Low back pain, unspecified; G89.29 Other chronic pain; M17.0 Bilateral primary osteoarthritis of knee; G47.36 Sleep related hypoventilation in conditions classified elsewhere; R40.0 Somnolence

== ENCOUNTER → 2025-01-17 09:30 | Outpatient (BNVA) | payer SELFPAY | PROVIDERS: PCP Internal Medicine; Visit Provider Internal Medicine | DX: Z02.79 Encounter for issue of other medical certificate (principal) ==

== ENCOUNTER 2025-05-07 09:21 | Outpatient (AMB) | payer BC, SELFPAY ==
[2025-05-07 09:22] VITALS: BP 106/66; PULSE 65; RESP 20; TEMP 36.2; O2SAT 98; BMI 46.0
--- NOTE | 2025-05-07 09:22 | MHC.PC.OV ---
Vital Signs 05/07/25 09:22 Height 5 ft 8 in Weight 302 lb 6 oz BMI 46.0 BP 106/66 Blood Pressure Location Lt brachial Position Sitting Respiration 20 Pulse 65 Pulse Source Pulse Oximeter Temp 97.2 F Temp Source Temporal Artery Scan Pulse Oximetry (%) 98 Oxygen Delivery Method Room Air Intake Visit Reasons: 6 month f/u - see comments Intake Note: no other issues he did have iron check by Dr. Ho Construction Assistant Required: No Accompanied by: Self / Same As Patient Allergies Iodinated Contrast Media (IV CONTRAST) Allergy (Intermediate, Verified 05/07/25 12:59) HIVES blue dye Allergy (Verified 05/07/25 12:59) Hives Medication List - Last Reconciled 05/07/25 by Mahnaz Laurent PA-C allopurinol 300 mg PO DAILY [centrum multivitamin 1 tab PO DAILY] ergocalciferol (vitamin D2) 1,250 mcg PO 2XW 3 months lisinopril 20 mg PO BID lorazepam 1 mg PO DAILY PRN metoprolol tartrate 50 mg PO BID tirzepatide (weight loss) (Zepbound) 15 mg (0.5 mL) subcut QWEEK [Vitamin C 1 tab PO DAILY] Tobacco use date assessed: 11/06/24 Dental Screening Dental Screen Date: 11/06/24 Did you have a dental visit in the last 12 months?: Yes Did you have a dental problem in the last 6 months where you did not have access to dental care?: No Was dental information given to patient?: Patient has dentist HPI 6 month f/u - see comments HPI Details The patient is a 60-year-old male presenting for a follow-up visit for diabetes management and related health concerns. The patient has a history of diabetes mellitus, which was previously poorly controlled with an A1c of 6.5% in 2022, but has improved to 5.1%, indicating a return to a non-diabetic state. He has been on Zepbound 15 mg for weight management, which has contributed to a significant weight loss of 99 pounds. The patient also has a history of iron deficiency anemia, for which he sees Dr. Ho. Recent lab results show a hemoglobin of 12.8 g/dL and hematocrit of 41.5%, with ferritin at 26 ng/mL and iron at 42 mcg/dL, slightly below normal. The patient has a history of obesity, which has been managed with lifestyle changes and medication, resulting in significant weight loss. The patient has a history of hypertension, previously poorly controlled, but currently well-managed with a blood pressure of 106/66 mmHg. He is on a regimen of lisinopril and metoprolol, with plans to discontinue amlodipine to assess blood pressure control. 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 - Exercise: Engages in physical activity related to work and recreational activities such as boating and fishing. - Nutrition: Has made dietary changes, including consuming pin cleaner meats and reducing junk food intake. [facility] Medical History (Updated 05/07/25 @ 13:05 by Mahnaz Laurent PA-C) Type 2 diabetes mellitus with hemoglobin A1c goal of less than 7.0% Morbid obesity with BMI of 45.0-49.9, adult Chronic low back pain Nocturnal hypoxemia due to obesity Somnolence, daytime Snoring DAISY (obstructive sleep apnea) Morbid obesity Kidney stone on right side Deviated septum COVID LVH (left ventricular hypertrophy) Incisional hernia Plantar fasciitis Varicella zoster Renal lithiasis Vitamin D deficiency Iron deficiency anemia Obesity HTN (hypertension) Surgical History History of colonoscopy (~01/11/17) S/P left knee arthroscopy Family History Father High blood pressure Mother High blood pressure History of stroke Social History Household Members: Spouse Housing: House Are you a primary college and career counselor to a significant other at home: No Alcohol intake: current Alcohol intake frequency: holidays/special occasions only Patient Tobacco Use Status: Former Tobacco user Tobacco use type: Cigarette service: No Current occupational status: employed Cognitive needs: No Hearing needs: No Vision needs: Yes (cheaters) Questionnaire PHQ-9 Over the last 2 weeks, how often have you been bothered by any of the following problems? 1. Little interest or pleasure in doing things: not at all 2. Feeling down, depressed, or hopeless: not at all 3. Trouble falling or staying asleep, or sleeping too much: not at all 4. Feeling tired or having little energy: not at all 5. Poor appetite or overeating: not at all 6. Feeling bad about yourself - or that you are a failure or have let yourself or your family down: not at all 7. Trouble concentrating on things, such as reading the newspaper or watching television: not at all 8. Moving or speaking so slowly that other people could have noticed. Or the opposite - being so fidgety or restless that you have been moving around a lot more than usual: not at all 9. Thoughts that you would be better off or of hurting yourself in some way: not at all Total score: 0 Depression Screening Interpretation: Negative Depression Screening Done: Yes 79817 - PHQ-9 Billing: Yes Source: Developed by Drs. Ti Fay, Mora England, Scotty Hernandez and colleagues, with an educational racheal from [employer]. Thrive Questionnaire Date Thrive assessed: 11/06/24 I am a: Patient What is your living situation today?: I have a steady place to live Within the past 12 months, did the food you bought not last and you didn't have the money to get more?: Never true Within the past 12 months, did you worry whether your food would run out before you got money to buy more?: Never true Do you have trouble paying for medicines?: No Do you have trouble getting transportation to medical appointments?: No Do you have trouble paying your heating and electricity bill?: No Do you have trouble taking care of your child, family member or friend?: No Do you have trouble with day-to-day activities such as bathing, preparing meals, shopping, managing finances, etc.?: No Are you currently unemployed and looking for a job?: No Are you interested in more education?: No Please select the resources that you would like help with: None Currently or been in a relationship where the following occur: No concerns reported THRIVE Score: 0 AUDIT C Alcohol Use Questionnaire (AUDIT-C) 1. How often do you have a drink containing alcohol?: Monthly or less 2. How many drinks containing alcohol do you have on a typical day when you are drinking?: 1 or 2 3. How often do you have six or more drinks on one occasion?: Never Total Score: 1 Score Reviewed/Action Taken: No KEHINDE-7 AMB Questionnaire KEHINDE-7 Date KEHINDE - 7 assessed: 11/06/24 Feeling nervous, anxious, or on edge: 0 = Not at all Not being able to stop or control worryin = Not at all Worrying too much about different things: 0 = Not at all Trouble relaxin = Not at all Being so restless that it is hard to sit still: 0 = Not at all Becoming easily annoyed or irritable: 0 = Not at all Feeling afraid as if something awful might happen: 0 = Not at all Total KEHINDE-7 score (0-4 normal; 5-9 mild; 10-14 moderate; 15-21 severe): 0 Source: Developed by Drs. Ti Fay, Mora England, Scotty Hernandez and colleagues, with an educational racheal from [employer]. KEHINDE-7 Assessment Billing KEHINDE-7 Assessment Tool: KEHINDE-7 Assessment 77247 Review of Systems Const Details: - Musculoskeletal: Reports knee pain due to occupational strain. - Cardiovascular: Denies dizziness or other symptoms related to hypertension. All systems reviewed & are unremarkable except as noted in HPI and below Physical exam (Primary Care) Vital Signs: Last Vital Signs Temp 97.2 F 05/07/25 09:22 Pulse 65 05/07/25 09:22 Resp 20 05/07/25 09:22 BP 106/66 05/07/25 09:22 Pulse Ox 98 05/07/25 09:22 Oxygen Delivery Method Room Air 05/07/25 09:22 Care Plan Goal for BP management: <140/90 at Goal BMI result Body Mass Index 46.0 BMI Assessment/Plan discussion: High BMI High, discussed plan: lifestyle, weight reduction, dietary, physical activity and alcohol moderation Tobacco/Smoking Status: Tobacco use Status Tobacco use date assessed 11/06/24 05/07/25 09:27 Patient Tobacco Use Status Former Tobacco user 05/07/25 09:35 Tobacco use type Cigarette 05/07/25 09:35 PHQ-9: PHQ-9 Score PHQ-9: Total score 0 05/07/25 10:27 Depression Screening Interpretation: Negative Thrive Assessment: Date of Thrive Assessment Date Thrive assessed 11/06/24 05/07/25 09:27 Currently or been in a relationship where the following occur: No concerns reported Const Other: Appearance: Alert. Oriented X3. No acute distress. Head: Normal external exam. Normocephalic. Atraumatic. Eyes: Pupils are equal, round, and reactive to light. Extraocular movements intact. Conjunctiva and sclera normal. Eyelids normal. Throat: Pharynx normal. Uvula midline. Moist mucous membranes. Neck: Normal inspection. Neck supple. Full range of motion. Cardiovascular: Normal heart rate and rhythm. Respiratory: No respiratory distress. Painless inspiration. Back: Full range of motion noted. Skin: Skin warm and dry. Normal skin color. Normal skin turgor. No rashes/lesions/lacerations noted. Extremities: No lower extremity edema. Extremities exhibit normal range of motion. Neuro: Oriented X 3. No motor deficit. No sensory deficit. Reflexes normal. Results AMB Hemoglobin A1c AMB Hemoglobin A1c 5.1 % Last Edit by NAHEED Lechuga on 05/07/25 10:14 Results Reviewed Results Reviewed: Laboratory Last Values Hgb A1c (Clinic) 5.1 % (4.0-6.0) 05/07/25 10:13 - Labs: Hemoglobin 12.8 g/dL, Hematocrit 41.5%, Ferritin 26 ng/mL, Iron 42 mcg/dL, TIBC 275 mcg/dL, Total saturation 15%. Coding Level of Care Code Est Pt Level 4 (17628) Complex EM visit Add On G2211 Diagnoses Type 2 diabetes mellitus with hemoglobin A1c goal of less than 7.0% E11.9 Iron deficiency anemia D50.9 Morbid obesity with BMI of 45.0-49.9, adult E66.01; Z68.42 HTN (hypertension) I10 Additional Codes PHQ-9 - 69834 - PHQ-9 Billing: Yes ([id number]) KEHINDE-7 Assessment Billing - KEHINDE-7 Assessment Tool: KEHINDE-7 Assessment 11231 ([id number]) Assessment & Plan Assessment & Plan (1) Type 2 diabetes mellitus with hemoglobin A1c goal of less than 7.0%: Code(s): E11.9 - Type 2 diabetes mellitus without complications Category: Medical Plan: The patient's diabetes is currently well-managed with an A1c of 5.1%, indicating a non-diabetic state. He is on Zepbound 15 mg for weight management, which has contributed to significant weight loss and improved glycemic control. Regular follow-up every three months is recommended to monitor A1c and overall diabetes management. (2) Iron deficiency anemia: Code(s): D50.9 - Iron deficiency anemia, unspecified Category: Medical Plan: The patient continues to manage iron deficiency anemia with regular follow-ups with Dr. Ho. Recent lab results show slight improvement, but iron levels remain slightly below normal. (3) Morbid obesity with BMI of 45.0-49.9, adult: Code(s): E66.01 - Morbid (severe) obesity due to excess calories; Z68.42 - Body mass index [BMI] 45.0-49.9, adult Category: Medical Plan: The patient has achieved significant weight loss through lifestyle changes and medication, specifically Zepbound 15 mg. Continued focus on dietary modifications and physical activity is advised to maintain weight loss. (4) HTN (hypertension): Code(s): I10 - Essential (primary) hypertension Category: Medical Plan: The patient's hypertension is currently well-controlled with a blood pressure of 106/66 mmHg. The plan includes discontinuing amlodipine to assess blood pressure control, with continued monitoring advised. Plan Plan Patient was informed and verbally consented to the use of an ambient scribe for clinic note documentation during this visit. 1. Diabetes Mellitus The patient's diabetes is currently well-managed with an A1c of 5.1%, indicating a non-diabetic state. He is on Zepbound 15 mg for weight management, which has contributed to significant weight loss and improved glycemic control. Regular follow-up every three months is recommended to monitor A1c and overall diabetes management. 2. Iron Deficiency Anemia The patient continues to manage iron deficiency anemia with regular follow-ups with Dr. Ho. Recent lab results show slight improvement, but iron levels remain slightly below normal. 3. Obesity The patient has achieved significant weight loss through lifestyle changes and medication, specifically Zepbound 15 mg. Continued focus on dietary modifications and physical activity is advised to maintain weight loss. 4. Hypertension The patient's hypertension is currently well-controlled with a blood pressure of 106/66 mmHg. The plan includes discontinuing amlodipine to assess blood pressure control, with continued monitoring advised. During the visit, we discussed the patient's current management of diabetes, including the significant improvement in A1c levels and the role of Zepbound in weight management. We also reviewed the patient's iron deficiency anemia and the importance of regular follow-ups with Dr. Ho. For hypertension, we decided to discontinue amlodipine to evaluate blood pressure control, with plans for continued monitoring. Orders: Orders AMB Hemoglobin A1c Today E11.9 - Type 2 diabetes mellitus without complications, Z13.9 - Encounter for screening, unspecified Complete Blood Count Auto Diff Today Z00.00 - Encounter for general adult medical examination without abnormal findings Medications: Discontinued amlodipine Discontinued Reason: Doctor's Order 10 mg PO DAILY 90 tabs 1RF Patient Instructions: - Continue taking Zepbound 15 mg as prescribed. - Follow up with Dr. Ho for iron deficiency anemia management. - Monitor blood pressure regularly and report any significant changes. - Schedule a follow-up appointment in three months for diabetes management and blood pressure evaluation.
== END 2025-05-07 10:02 | disposition home or self-care (01) ==
LOC: HO.HMCSH 09:21
PROVIDERS: PCP Internal Medicine; Visit Provider Physician Assistant Medical
DX: E11.9 Type 2 diabetes mellitus without complications (principal); D50.9 Iron deficiency anemia, unspecified; E66.01 Morbid (severe) obesity due to excess calories; Z68.42 Body mass index [BMI] 45.0-49.9, adult; I10 Essential (primary) hypertension; Z13.9 Encounter for screening, unspecified

== ENCOUNTER → 2025-05-07 09:21 | Outpatient (BNVA) | payer BC, SELFPAY | PROVIDERS: PCP Internal Medicine; Visit Provider Physician Assistant Medical | DX: E11.9 Type 2 diabetes mellitus without complications (principal); D50.9 Iron deficiency anemia, unspecified; I10 Essential (primary) hypertension; E66.01 Morbid (severe) obesity due to excess calories; Z68.42 Body mass index [BMI] 45.0-49.9, adult | CPT/HCPCS: 83036; 96127 ==

== ENCOUNTER 2025-06-26 08:19 | Outpatient (REF) | payer BC, SELFPAY ==
[2025-06-26 09:59] LABS: MANUAL DIFF FLAG NO
[2025-06-26 10:01] LABS: Hematocrit 42.1 % (42.0-52.0); Hemoglobin 12.8 g/dl (14.0-18.0); Imm Gran Abs Auto 0.05 X10*3/uL (0.00-0.03); Imm Gran Pct Auto 0.5 % (0.0-0.4); Lymphocytes Absolute Auto 2.2 X10*3/uL (1.2-4.9); Mean Corpuscular HGB Conc 30.4 g/dl (31.0-36.0); Mean Corpuscular Hemoglobin 25.9 pg (27.0-33.0); Mean Corpuscular Volume 85.2 fL (80.0-98.0); NRBC Abs Auto 0.000 X10*3/uL (0.0-0.012); NRBC Pct Auto 0.0 /100WBC (0.0-0.2); Platelet Count 234 X10*3/uL (160-400); Red Blood Count 4.94 X10*6/uL (4.60-5.80); White Blood Count 9.6 X10*3/uL (4.8-10.8)
[2025-06-26 10:33] LABS: Alanine Aminotransferase 19 U/L (0-40); Albumin Level 3.7 g/dL (3.5-5.0); Alkaline Phosphatase 82 U/L (39-117); Anion Gap 8 (12-20); Aspartate Amino Transferase 21 U/L (5-37); Blood Urea Nitrogen 30 mg/dL (9-16); Calcium 8.8 mg/dL (8.4-10.2); Carbon Dioxide 26 mmol/L (22-29); Chloride 115 mmol/L (96-108); Cholesterol 139 mg/dL (<200); Estimated Glomerular Filt Rate > 60; HDL Cholesterol 38 mg/dL (>40); Magnesium 2.1 mg/dL (1.6-2.6); Potassium 4.5 mmol/L (3.3-5.1); Sodium 144 mmol/L (135-145); Total Protein 6.4 g/dL (6.5-8.0); Triglycerides 55 mg/dL (<150)
[2025-06-26 10:39] LABS: PSA,Total (Free>4and<10) 0.64 ng/mL (0.00-4.00)
[2025-06-26 11:00] LABS: Folate 11.4 ng/mL (> or = 4.0); Vitamin B12 717 pg/mL (200-900)
== END 2025-06-26 08:20 | disposition home or self-care (01) ==
LOC: HO.HMGCLDS 08:19
PROVIDERS: PCP Physician Assistant Medical; Visit Provider Physician Assistant Medical
DX: Z00.00 Encounter for general adult medical examination without abnormal findings (principal); Z12.5 Encounter for screening for malignant neoplasm of prostate; Z13.6 Encounter for screening for cardiovascular disorders; R30.0 Dysuria
CPT/HCPCS: 36415; 80053; 80061; 80076; 82248; 82306; 82607; 82746; 83735; 84153; 84425; 84443; 85025; 86140; 87086; 87088; 87186

== ENCOUNTER 2025-06-27 10:33 | Outpatient (REF) | payer BC, SELFPAY | END 2025-06-27 10:34 | disposition home or self-care (01) | LOC: HO.LAB 10:33 | PROVIDERS: Visit Provider Physician Assistant Medical | DX: Z13.89 Encounter for screening for other disorder (principal) ==

== ENCOUNTER 2025-06-27 11:22 | Outpatient (REF) | payer BC, SELFPAY ==
[2025-06-27 13:12] LABS: Appearance Urine Turbid; Glucose Urine UA Negative (Negative); PH 6.0 (5.0-9.0); Specific Gravity - Urine >= 1.030 (1.005-1.025); UMIC TRIGGER UACC YES
[2025-06-27 13:28] LABS: UACC Culture Trigger YES
== END 2025-06-27 11:23 | disposition home or self-care (01) ==
LOC: HO.HMGCLDS 11:22
PROVIDERS: PCP Internal Medicine; Visit Provider Physician Assistant Medical
DX: Z00.00 Encounter for general adult medical examination without abnormal findings (principal); R30.0 Dysuria
CPT/HCPCS: 81001; 81003; 87086; 87088

== ENCOUNTER 2025-07-04 16:33 | Outpatient (AMB) | payer BC, SELFPAY ==
--- NOTE | 2025-07-04 17:10 | A.OFFPC_ITS ---
Intake Visit Reasons: telehealth Intake Note: UTI like symptoms Allergies Iodinated Contrast Media (IV CONTRAST) Allergy (Intermediate, Verified 07/04/25 17:10) HIVES blue dye Allergy (Verified 07/04/25 17:10) Hives Medication List - Last Reconciled 07/04/25 by Mahnaz Laurent PA-C allopurinol 300 mg PO DAILY [centrum multivitamin 1 tab PO DAILY] ergocalciferol (vitamin D2) 1,250 mcg PO 2XW 3 months levofloxacin 250 mg PO DAILY 5 days lisinopril 20 mg PO BID lorazepam 1 mg PO DAILY PRN metoprolol tartrate 50 mg PO BID metronidazole 500 mg PO BID 7 days tirzepatide (weight loss) (Zepbound) 15 mg (0.5 mL) subcut QWEEK [Vitamin C 1 tab PO DAILY] Tobacco use date assessed: 11/06/24 Dental Screening Dental Screen Date: 11/06/24 HPI telehealth HPI Details The patient is a 60-year-old male presenting with a bacterial vaginosis infection. The patient has a history of kidney stone issues, which led to surgical intervention where part of his urinary tract was reconstructed using intestinal tissue. He reports experiencing recurrent bladder infections, particularly with seasonal changes. [facility] Medical History (Updated 07/04/25 @ 17:13 by Mahnaz Laurent PA-C) Exposure to Gardnerella vaginalis Dysuria Type 2 diabetes mellitus with hemoglobin A1c goal of less than 7.0% Morbid obesity with BMI of 45.0-49.9, adult Chronic low back pain Nocturnal hypoxemia due to obesity Somnolence, daytime Snoring DAISY (obstructive sleep apnea) Morbid obesity Kidney stone on right side Deviated septum COVID LVH (left ventricular hypertrophy) Incisional hernia Plantar fasciitis Varicella zoster Renal lithiasis Vitamin D deficiency Iron deficiency anemia Obesity HTN (hypertension) Surgical History History of colonoscopy (~01/11/17) S/P left knee arthroscopy Family History Father High blood pressure Mother High blood pressure History of stroke Social History Household Members: Spouse Housing: House Are you a primary career development facilitator to a significant other at home: No Alcohol intake: current Alcohol intake frequency: holidays/special occasions only Patient Tobacco Use Status: Former Tobacco user Tobacco use type: Cigarette service: No Current occupational status: employed Cognitive needs: No Hearing needs: No Vision needs: Yes (cheaters) Questionnaire Thrive Questionnaire Date Thrive assessed: 11/06/24 KEHINDE-7 AMB Questionnaire KEHINDE-7 Date KEHINDE - 7 assessed: 11/06/24 Source: Developed by Drs. Ti Fay, Mora England, Scotty Hernandez and colleagues, with an educational racheal from [employer]. Review of Systems Const Details: - Genitourinary: Reports recurrent bladder infections with seasonal changes. All systems reviewed & are unremarkable except as noted in HPI and below Physical exam (Primary Care) Tobacco/Smoking Status: Tobacco use Status Tobacco use date assessed 11/06/24 05/07/25 10:00 Patient Tobacco Use Status Former Tobacco user 05/07/25 10:00 Tobacco use type Cigarette 05/07/25 10:00 Thrive Assessment: Date of Thrive Assessment Date Thrive assessed 11/06/24 05/07/25 10:00 Telehealth Telehealth Telehealth Platform: Telephone Location of provider rendering services: practice address Location of patient: address on file Patient Identification confirmed using: Name, : Yes Telehealth method: voice only Patient verbally consented to treatment: Yes Patient verbally consented to billing insurance company: Yes Patient informed of any privacy concerns related to visit: Yes Minutes spent on Phone/Video with Pt.: 20 Results Reviewed Results Reviewed: Reviewed patient's urine culture and revealed that he had bacterial vaginosis that I ordered as an outpatient return today Coding Level of Care Code Tele Est Pt Level 4 (95941) Complex EM visit Add On G2211 Diagnoses Exposure to Gardnerella vaginalis Z20.818 Assessment & Plan Assessment & Plan (1) Exposure to Gardnerella vaginalis: Code(s): Z20.818 - Contact with and (suspected) exposure to other bacterial communicable diseases Category: Medical Plan: The patient was prescribed Flagyl (metronidazole) to be taken twice daily for seven days to treat the bacterial vaginosis infection. The patient was advised to start the medication immediately and to contact the clinician if symptoms persist or worsen by Monday. Plan Plan Patient was informed and verbally consented to the use of an ambient scribe for clinic note documentation during this visit. 1. Bacterial Vaginosis Infection The patient was prescribed Flagyl (metronidazole) to be taken twice daily for seven days to treat the bacterial vaginosis infection. The patient was advised to start the medication immediately and to contact the clinician if symptoms persist or worsen by Monday. During the telehealth visit, I discussed the unusual nature of the bacterial vaginosis infection in a male patient and the prescribed treatment with Flagyl. I informed the patient about the necessity of documenting the telehealth visit for insurance purposes and advised him to monitor his symptoms and reach out if there is no improvement. Patient Instructions: - Start taking Flagyl (metronidazole) twice daily for seven days. - Monitor symptoms and contact the clinician if there is no improvement by Monday.
--- OUTSIDE RECORDS SUMMARY | 2025-07-04 18:32 | XMS_ITS | Data Portability ---
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 jose alberto Not available 05/31/2024 13:16:23 08/30/2024 08/30/2024 I am seeing the patient today under the supervision of Dr Haji who was available but who did not see the patient. jose alberto Not available 08/30/2024 14:13:47 11/27/2024 11/27/2024 I am seeing the patient today under the supervision of Dr Haji who was available but who did not see the patient. [email or web address] Not available 11/27/2024 14:07:29 03/05/2025 03/05/2025 I am seeing the patient today under the supervision of Dr Haji who was available but who did not see the patient. [email or web address] Not available 03/05/2025 10:59:23 Plan of Treatment Reminders Order Date Submit Date Provider Last Modified By Organization Details Last Modified Time Details Appointments RECHECK 15 2024 01:30P Oliver Porter PA-C Not available Not available Not available Lab None recorded. Referral None recorded. Procedures None recorded. Surgeries None recorded. Imaging None recorded. Medication Orders meloxicam 15 mg tablet 2024 025 [email or web address] [facility] #[id number], [address] [place], [id number], 06/03/2025 16:04:47 Patient TargetsNo targets recorded. Patient InstructionsNo instructions [...] Name and Address Organization Details Recorded Time Bilateral osteoarthri tis of knees 0896658294259 07 Active 2023 Karan Brooks PA-C [address], [place], [address], [facility] 4 13:33:45 Trochanteri c bursitis of right hip 4543763333601 00 Active 2023 Karan Brooks PA-C [address], [place], [address], [facility] 4 14:13:56 Osteoarthri tis of knee 598830836 Active 2023 Karan Brooks PA-C [address], [place], [address], [facility] 4 06:32:35 Pain of hip region 01939011 Active 2024 Karan Brooks PA-C [address], [place], [address], [facility] 5 10:59:31 Problem Notes None recorded. Procedures Surgical History Date Name Laterality Status Provider Name and Address Organization Details Recorded Time 06/03/20 25 Knee Kenalog 40 1cc Injection, Bilateral completed West Porter PA-C [address], [place], [address], [facility] 06/03/2025 16:06:34 06/03/20 25 JZHip Inj completed West Porter PA-C [address], [place], [address], [facility] 06/03/2025 16:06:30 03/05/20 25 JZHip Inj completed Karan Brooks PA-C [address], [place], [address], [facility] 03/05/2025 10:59:18 03/05/20 25 JZKNEE INJ Bryce completed Karan Brooks PA-C [address], [place], [address], [facility] 03/05/2025 10:59:10 11/28/19 25 JZHip Inj completed Karan Brooks PA-C [address], [place], [address], [facility] 11/27/2024 14:07:22 11/28/19 25 JZKNEE INJ Bryce completed Karan Brooks PA-C [address], [place], [address], [facility] 11/27/2024 14:07:18 08/30/20 24 JZHip Inj completed Karan Brooks PA-C [address], [place], [address], [facility] 08/30/2024 14:13:42 08/30/20 24 JZKNEE INJ Bryce completed Karan Brooks PA-C [address], [place], [address], [facility] 08/30/2024 14:13:38 05/31/20 24 JZHip Inj completed Karan Brooks PA-C [address], [place], [address], [facility] 05/31/2024 13:16:12 05/31/20 24 JZKNEE INJ Bryce completed Karan Brooks PA-C [address], [place], [address], [facility] 05/31/2024 13:16:04 02/07/20 24 Zilretta Knee Injection, Bilateral completed Karan Brooks PA-C [address], [place], [address], [facility] 02/07/2024 13:33:38 [facility] 06/03/2025 14:28:52 Orthopedic Surgery completed [facility] 06/03/2025 14:28:52 Imaging Results None recorded. Procedure Notes None recorded. Medical Equipment None Reported. Allergies Allergen ID Allergen Name Allergen Category Reaction Reaction Severity Criticality Documentation Date Start Date Code Code System Note Provider Name and Address Organization Details Recorded Time 11698 Iodinated contrast media (substanc e) medicatio n Not available Not available Not available 11/20/20232020 05255 2003 SNOMED Aller gyNam e: 'ivp dye'; Not Available [facility] 12:45:03 Medications Name Sig Start Date Stop Date Status Note LastModified by Organization Details LastModified Time azithromyci n 250 mg tablet 02/06 completed Not Available Not Available Not Available meloxicam 15 mg tablet TAKE 1 TABLET BY MOUTH EVERY DAY AFTER MEALS active Not Available Not Available No t Available lisinopril 20 mg tablet TAKE 1 TABLET BY MOUTH TWICE DAILY active Not Available Not Available No t Available moxifloxaci n 400 mg tablet TAKE 1 TABLET BY MOUTH EVERY DAY FOR 10 DAYS 05/31 completed Not Available Not Available Not Available ciprofloxac in 500 mg tablet TAKE 1 TABLET BY MOUTH TWICE DAILY FOR 7 DAYS 03/05 completed Not Available Not Available Not Available tramadol 50 mg tablet TAKE 1 TABLET BY MOUTH EVERY 6 HOURS AFTER MEALS active Not Available Not Available No t Available amlodipine 10 mg tablet TAKE 1 TABLET BY MOUTH DAILY 06/03 completed Not Available Not Available Not Available metoprolol tartrate 50 mg tablet TAKE 1 TABLET BY MOUTH TWICE DAILY active Not Available Not Available No t Available allopurinol 300 mg tablet TAKE 1 TABLET BY MOUTH DAILY active Not Available Not Available No t Available ergocalcife rol (vitamin D2) 1,250 mcg (50,000 unit) capsule TAKE 1 CAPSULE BY MOUTH 2 TIMES A WEEK active Not Available Not Available No t Available lorazepam 1 mg tablet TAKE 1 TABLET BY MOUTH DAILY NEEDED FOR ANXIETY active Not Available Not Available No t [...] UNDER THE SKIN 1 TIME A WEEK 06/03 completed Not Available Not Available Not Available Mounjaro 5 mg/0.5 mL subcutaneou s pen injector ADMINISTE R 5 MG UNDER THE SKIN 1 TIME A WEEK 06/03 completed Not Available Not Available Not Available Mounjaro 15 mg/0.5 mL subcutaneou s pen injector ADMINISTE R 15 MG UNDER THE SKIN EVERY WEEK 06/03 completed Not Available Not Available Not Available Mounjaro 10 mg/0.5 mL subcutaneou s pen injector ADMINISTE R 10 MG UNDER THE SKIN 1 TIME A WEEK 06/03 completed Not Available Not Available Not Available Mounjaro 12.5 mg/0.5 mL subcutaneou s pen injector ADMINISTE R 12.5 MG UNDER THE SKIN 1 TIME A WEEK 06/03 completed Not Available Not Available Not Available Mounjaro 2.5 mg/0.5 mL subcutaneou s pen injector ADMINISTE R 2.5 MG UNDER THE SKIN 1 TIME A WEEK 06/03 completed Not Available Not Available Not Available Zepbound 15 mg/0.5 mL subcutaneou s pen injector ADMINISTE R 15 MG UNDER THE SKIN EVERY WEEK FOR 4 WEEKS active Not Available Not Available No t Available Vitals Date Recorded Body height Body mass index (BMI) Body weight Provider Name and Address Organization Details Last Updated DateTime 11/27/2024 172.72 cm 56 kg/m2 517495.99 dane Mitchell [facility] 11/27/2024 13:34:13 Date Recorded Body height Body mass index (BMI) Body weight Provider Name and Address Organization Details Last Updated DateTime 03/05/2025 172.72 cm 56 kg/m2 271393.99 dane Chery [facility] 03/05/2025 10:35:49 Date Recorded Body height Body mass index (BMI) Body weight Provider Name and Address Organization Details Last Updated DateTime 05/31/2024 172.72 cm 56 kg/m2 913898.99 dane Mitchell [facility] 05/31/2024 12:59:47 Date Recorded Body height Body mass index (BMI) Body weight Provider Name and Address Organization Details Last Updated DateTime 06/03/2025 172.72 cm 56 kg/m2 341815.99 dane Salinas [facility] 06/03/2025 14:29:01 Date Recorded Body height Body mass index (BMI) Body weight Provider Name and Address Organization Details Last Updated DateTime 08/30/2024 172.72 cm 56 kg/m2 471472.99 [facility] 08/30/2024 13:55:53 Social History Question Answer Notes LastModified by [employer] Details LastModified Time Tobacco Smoking Status [facility] 01/31/2024 12:54:35 What Is Your Relationship Status? Information not available 01/31/2024 Sex: Unknown Functional Status Question Answer Note LastModified by [employer] Details LastModified Time Do you use any illicit or recreational drugs? No Information not available 01/31/2024 Mental Status None recorded. Family History Nothing Reported. Medical History Condition Response Coronary Artery Disease N Anxiety/Depression N Emphysema N COPD N Pacemaker N Vascular Disease N Heart Trouble N Gastrointestinal Disease N Autoimmune disease N Orthotics N Arthritis N Blood Clot N Acid Reflux (GERD) N Cancer N Stroke N Circulation Problems N Rheumatoid Arthritis N Arrhythmia N Headaches N Fibromyalgia N Allergies/Hayfever N Breathing or lung disorders N Nerve Disorders N Thyroid Problems N Kidney/Bladder Problems Y Anemia Y Heart Attack (NV) N Cholesterol N Diabetes N Bleeding Disorder N Seizures/Epilepsy N AIDS/HIV N Congestive Heart Failure (CHF) N Asthma N Peripheral Vascular Disease N Sleep Apnea N Hepatitis N Heart Disease N Pulmonary Embolism N Hypertension Y Osteoporosis N Past Encounters Encounter ID Performer Location Encounter Start Date Encounter Closed Date Diagnosis/Indication Diagnosis SNOMED-CT Code Diagnosis ICD10 Code Diagnosis IMO Codes Diagnosis Note [id number] Karan Brooks PA-C [facility] [address] [place] [address] 02/07/2024 12:44:28 02/29/2024 13:15:18 Bilateral osteoarthritis of knees 2239757621 06080 M17.0 [id number] Karan Brooks PA-C [facility] [address] [place] [address] 05/31/2024 12:51:08 06/24/2024 11:35:51 Bilateral osteoarthritis of knees 5715083188 63740 M17.0 Trochanter ic bursitis of right hip 5225768790 57509 M70.61 [id number] Karan Brooks PA-C [facility] [address] [place] [address] 08/30/2024 13:50:37 09/24/2024 07:51:59 Bilateral osteoarthritis of knees 9855873407 26910 M17.0 Trochanter ic bursitis of right hip 7671265638 48556 M70.61 [id number] Karan Brooks PA-C [facility] [address] [place] [address] 11/27/2024 13:25:31 12/12/2024 11:30:12 Bilateral osteoarthritis of knees 9662242725 06829 M17.0 [id number] ISIAH [facility] [place] [address] [place] [address] 03/05/2025 10:29:10 03/12/2025 15:46:24 Bilateral osteoarthritis of knees 8611633086 68607 M17.0 Pain of hip region 36031 002 M25.551 87468898 [id number] ISIAH Feliciano [address] [place] [address] 06/03/2025 14:22:34 06/13/2025 08:10:19 Primary gonarthrosis, bilateral 708281402 M17.0 [id number] Trochanter ic bursitis of right hip 9018518519 73372 M70.61 2014392 Health Concerns Section Related Observation LastModified by Organization Detai ls LastModified Time None Recorded Concern Status LastModified by Organization Details LastModified Time None Recorded Advance Directives Directive None Recorded Payers Insurance Date Sequence Insurance Name Policy Number Policy Ferris Covered Member ID Ferris Member ID Guarantor Name 06/13/2025 1 [facility] [id number] Jessie Kwok [id number] Helio Kwok 06/03/2025 [employer] Helio Kwok [id number] Helio Kwok 06/11/2024 1 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 Garcia who was available but who did not see the patient. HPI:Patient presents today follow-up regarding their Bi-lateral knee. They have had difficulty up and down stairs sitting standing. Previous injection gave good relief until recent. Problems ambulating. Mrep-jaj-ydhbrrl medications are helping somewhat but not significantly. Pain is constant aching sometimes sharp pain with giving out sensations. He also was seen previously for his right hip diagnosed with right hip trochanteric bursitis by one of my colleagues. He did also receive a cortisone injection during last visit which gave him good relief up until recently. Continues to experience some pain on the lateral aspect of his hip. Past family, medical, social history and review of systems has been reviewed, updated and is located in the patient s chart. Examination:The patient is well appearing and in no apparent distress. Alert and oriented x3. Gait is symmetric. Examination of the Bi-lateral knee reveals no evidence of any edema, erythema, or warmth. No Deformity. Range of motion of the knee limited with mild discomfort at the end ranges. Mild effusion. Does have some tenderness to palpation about the medial hemijoint line. No tenderness to palpation about the lateral hemijoint line. Patellofemoral crepitus is noted. mild lateral ligamentous laxity. Negative Eamon s . Calf is supple and nontender. Neurovascularly intact distally. Right hip without erythema, warmth, ecchymosis, swelling. Tenderness present over the lateral aspect. Full range of motion of the hip in all directions with minimal discomfort. Impression:Bi-lateral Knee osteoarthritis, right hip trochanteric bursitis Plan:We discussed the role of conservative management including medications, physical therapy, injection and bracing. At this point the patient was to proceed with injection. Please see procedure note. Patient was also given a prescription today for meloxicam 15 mg that she will utilize once daily in the morning with food to avoid upset stomach. I advised to not utilize any other anti-inflammatory medications while he is taking this to his medication interaction as well as kidney injury. He will take it for the first week and then ultimately take it on an as-needed basis after this. We will see him back in the office in about 3 months. At this time all patient questions and concerns answered and addressed today. West Porter PA-C [address] [place], [place] [address] [address], [place], [address], [facility] 06/03/2025 16:06:59
== END 2025-07-04 16:40 | disposition home or self-care (01) ==
LOC: HO.HMCSH 16:33
PROVIDERS: PCP Internal Medicine; Visit Provider Physician Assistant Medical
DX: Z20.818 Contact with and (suspected) exposure to other bacterial communicable diseases (principal)

== ENCOUNTER 2025-07-15 11:04 | Outpatient (REF) | payer BC, SELFPAY ==
--- OUTSIDE RECORDS SUMMARY | 2025-07-15 16:02 | XMS_ITS | Data Portability ---
Author Organization [place] - [facility], [facility] Address [address] [place] [address] Care Team Providers [employer] Director Name Role Phone PEDRO DILLON Primary Care [...] meloxicam 15 mg tablet 2024 025 [email or web address] [facility] #[id number], [address] [place], [id number], 06/03/2025 16:04:47 Patient TargetsNo targets recorded. Patient [...] Recorded Time Bilateral osteoarthri tis of knees [id number] 07 Active 2023 Karan Brooks PA-C [address], [place], [address], [facility] 4 13:33:45 Trochanteri c bursitis of right hip 8060393244674 00 Active 2023 Karan Brooks PA-C [address], [place], [address], [facility] 4 14:13:56 Osteoarthri tis of knee 935222793 Active 2023 Karan Brooks PA-C [address], [place], [address], [facility] 4 06:32:35 Pain of hip region 66674039 Active 2024 Karan Brooks PA-C [address], [place], [address], [facility] 5 10:59:31 Problem Notes None recorded. Procedures Surgical History Date Name Laterality Status Provider Name and Address Organization Details Recorded Time 06/03/20 25 Knee Kenalog 40 1cc Injection, Bilateral completed West Porter PA-C [address], [place], [address], [facility] 06/03/2025 16:06:34 06/03/20 25 JZHip Inj completed West Porter PA-C [address], [place], [address], [facility] 06/03/2025 16:06:30 03/05/20 25 JZHip Inj completed Karan Brooks PA-C [address], [place], [address], [facility] 03/05/2025 10:59:18 03/05/20 25 JZKNEE INJ Bryce completed Karan Brooks PA-C [address], [place], [address], [facility] 03/05/2025 10:59:10 11/28/19 25 JZHip Inj completed Karan Brooks PA-C [address], [place], [address], [facility] 11/27/2024 14:07:22 11/28/19 25 JZKNEE INJ Bryce completed Karan Brooks PA-C [address], [place], [address], [facility] 11/27/2024 14:07:18 08/30/20 24 JZHip Inj completed Karan Brooks PA-C [address], [place], [address], [facility] 08/30/2024 14:13:42 08/30/20 24 JZKNEE INJ Bryce completed Karan Brooks PA-C [address], [place], [address], [facility] 08/30/2024 14:13:38 05/31/20 24 JZHip Inj completed Karan Brooks PA-C [address], [place], [address], [facility] 05/31/2024 13:16:12 05/31/20 24 JZKNEE INJ Bryce completed Karan Brooks PA-C [address], [place], [address], [facility] 05/31/2024 13:16:04 02/07/20 24 Zilretta Knee Injection, Bilateral completed Karan Brooks PA-C [address], [place], [address], [facility] 02/07/2024 13:33:38 [facility]astrointestinal [facility] 06/03/2025 14:28:52 Orthopedic Surgery completed [facility] 06/03/2025 14:28:52 Imaging Results None recorded. Procedure Notes None recorded. Medical Equipment None Reported. Allergies Allergen ID Allergen Name Allergen Category Reaction Reaction Severity Criticality Documentation Date Start Date Code Code System Note Provider Name and Address Organization Details Recorded Time 26625 Iodinated contrast media (substanc e) medicatio n Not available Not available Not available 11/20/20232020 27924 2003 SNOMED Aller gyNam e: 'ivp dye'; Not Available [facility] 12:[facility]:03 Medications Name Sig Start Date [...] Updated DateTime 11/27/2024 172.72 cm 56 kg/m2 295687.99 dane Mitchell [facility] 11/27/2024 13:34:13 Date Recorded Body height Body mass index (BMI) Body weight Provider Name and Address Organization Details Last Updated DateTime 03/05/2025 172.72 cm 56 kg/m2 796075.99 dane Chery [facility] 03/05/2025 10:35:49 Date Recorded Body height Body mass index (BMI) Body weight Provider Name and Address Organization Details Last Updated DateTime 05/31/2024 172.72 cm 56 kg/m2 865007.99 dane Mitchell [facility] 05/31/2024 12:59:47 Date Recorded Body height Body mass index (BMI) Body weight Provider Name and Address Organization Details Last Updated DateTime 06/03/2025 172.72 cm 56 kg/m2 470526.99 dane Traviston [facility] 06/03/2025 14:29:01 Date Recorded Body height Body mass index (BMI) Body weight Provider Name and Address Organization Details Last Updated DateTime 08/30/2024 172.72 cm 56 kg/m2 234928.99 [facility] 08/30/2024 13:55:53 Social History Question Answer Notes LastModified by [employer] Details LastModified Time Tobacco Smoking Status Never [facility] 01/31/2024 12:54:35 What Is Your Relationship Status? Information not available 01/31/2024 Sex: Unknown Functional Status Question Answer Note LastModified by [employer] Details LastModified Time Do you use any [...] Disease N Heart Trouble N Heart Attack ([place]) N Gastrointestinal Disease N Cholesterol N Diabetes [...] ICD10 Code Diagnosis IMO Codes Diagnosis Note [id number] Karan Brooks PA-C [facility] [address] [place] [address] 02/07/2024 12:44:28 02/29/2024 13:15:18 Bilateral osteoarthritis of knees 9916882891 93034 M17.0 [id number] ISIAH Rodriguez [address] [place] [address] 05/31/2024 12:51:08 06/24/2024 11:35:51 Bilateral osteoarthritis of knees 2647356727 20890 M17.0 Trochanter ic bursitis of right hip 0948540706 14443 M70.61 [id number] Karan Brooks PA-C [facility] [address] [place] [address] 08/30/2024 13:50:37 09/24/2024 07:51:59 Bilateral osteoarthritis of knees 3041337229 10419 M17.0 Trochanter ic bursitis of right hip 4691538977 17828 M70.61 2159870 [id number] Karan Brooks PA-C [facility] [address] [place] [address] 11/27/2024 13:25:31 12/12/2024 11:30:12 Bilateral osteoarthritis of knees 2175134286 92964 M17.0 [id number] ISIAH [facility] [place] [address] [place] [address] 03/05/2025 10:29:10 03/12/2025 15:46:24 Bilateral osteoarthritis of knees 0620091449 40137 M17.0 Pain of hip region 77761 002 M25.551 93863738 [id number] ISIAH Feliciano [address] [place] [address] 06/03/2025 14:22:34 06/13/2025 08:10:19 Primary gonarthrosis, bilateral 174545596 M17.0 [id number] Trochanter ic bursitis of right hip 1740018191 79576 M70.61 [id number] Health Concerns Section Related Observation LastModified by Organization Detai ls LastModified Time None Recorded Concern Status LastModified by Organization Details LastModified Time None Recorded Advance Directives Directive None Recorded Payers Insurance Date Sequence Insurance Name Policy Number Policy Ferris Covered Member ID Ferris Member ID Guarantor Name 06/13/2025 1 [facility] [place] [place] [id number] Jessie Kwok [id number] Helio Kwok 06/03/2025 [employer] Helio Kwok [id number] Helio Kwok 06/11/2024 1 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 Problems ambulating. Lrhg-nju-[id number] medications are helping somewhat but not significantly. [...] answered and addressed today. West Porter PA-C [address] [place], [place] [address] [address], [place], [address], [facility] 06/03/2025 16:06:59
[2025-07-15 16:55] LABS: Hematocrit 44.6 % (42.0-52.0); Hemoglobin 13.4 g/dl (14.0-18.0); Mean Corpuscular HGB Conc 30.0 g/dl (31.0-36.0); Mean Corpuscular Hemoglobin 25.9 pg (27.0-33.0); Mean Corpuscular Volume 86.1 fL (80.0-98.0); NRBC Abs Auto 0.000 X10*3/uL (0.0-0.012); NRBC Pct Auto 0.0 /100WBC (0.0-0.2); Platelet Count 320 X10*3/uL (160-400); Red Blood Count 5.18 X10*6/uL (4.60-5.80); White Blood Count 12.5 X10*3/uL (4.8-10.8)
[2025-07-15 16:57] LABS: Alanine Aminotransferase 26 U/L (0-40); Albumin Level 3.8 g/dL (3.5-5.0); Alkaline Phosphatase 75 U/L (39-117); Anion Gap 10 (12-20); Aspartate Amino Transferase 25 U/L (5-37); Blood Urea Nitrogen 29 mg/dL (9-16); Calcium 9.0 mg/dL (8.4-10.2); Carbon Dioxide 27 mmol/L (22-29); Chloride 112 mmol/L (96-108); Estimated Glomerular Filt Rate > 60; Magnesium 2.2 mg/dL (1.6-2.6); Potassium 4.4 mmol/L (3.3-5.1); Sodium 145 mmol/L (135-145); Total Protein 6.7 g/dL (6.5-8.0)
[2025-07-15 17:50] LABS: Appearance Urine Turbid; Glucose Urine UA Negative (Negative); PH 5.5 (5.0-9.0); Specific Gravity - Urine 1.015 (1.005-1.025); UMIC TRIGGER UACC YES
[2025-07-15 21:12] LABS: UACC Culture Trigger YES
== END 2025-07-15 11:05 | disposition home or self-care (01) ==
LOC: HO.HMGCLDS 11:04
PROVIDERS: PCP Physician Assistant Medical; Visit Provider Physician Assistant Medical
DX: Z00.00 Encounter for general adult medical examination without abnormal findings (principal); N39.0 Urinary tract infection, site not specified
CPT/HCPCS: 36415; 80053; 81001; 83735; 85027; 87086; 96127

== ENCOUNTER 2025-07-15 11:04 | Outpatient (AMB) | payer BC, SELFPAY ==
--- NOTE | 2025-07-15 11:37 | MHC.PC.OV ---
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 Accompanied by: Self / Same As Patient Allergies Iodinated Contrast Media (IV CONTRAST) Allergy (Intermediate, Verified 07/15/25 11:41) HIVES blue dye Allergy (Verified 07/15/25 11:41) Hives Medication List - Last Reconciled 07/15/25 by Mahnaz Laurent PA-C allopurinol 300 mg PO DAILY [centrum multivitamin 1 tab PO DAILY] ciprofloxacin HCl 500 mg PO BID 7 days ergocalciferol (vitamin D2) 1,250 mcg PO 2XW 3 months lisinopril 20 mg PO BID lorazepam 1 mg PO DAILY PRN metoprolol tartrate 50 mg PO BID tirzepatide (weight loss) (Zepbound) 15 mg (0.5 mL) subcut QWEEK [Vitamin C 1 tab PO DAILY] Tobacco use date assessed: 11/06/24 Dental Screening Dental Screen Date: 11/06/24 HPI UTI symptoms HPI Details The patient is a 60-year-old male presenting via telehealth for evaluation of a persistent urinary tract infection. He was initially evaluated at the beginning of the month for urinary symptoms, and a urine culture from 06/26/2025 grew Proteus, for which he was treated with levofloxacin. Due to persistent symptoms, a second urine culture was performed which grew Gardnerella vaginalis. He was subsequently treated with Flagyl twice daily. Despite treatment for two different bacteria, he continues to experience urinary discomfort and frequency. The patient has a history of kidney stones. He reports mild discomfort in the right kidney area but denies fevers, nausea, vomiting, abdominal pain, or genoveva blood in his urine. [facility] Medical History (Updated 07/15/25 @ 11:43 by Mahnaz Laurent PA-C) Recurrent UTI Exposure to Gardnerella vaginalis Dysuria Type 2 diabetes mellitus with hemoglobin A1c goal of less than 7.0% Morbid obesity with BMI of 45.0-49.9, adult Chronic low back pain Nocturnal hypoxemia due to obesity Somnolence, daytime Snoring DAISY (obstructive sleep apnea) Morbid obesity Kidney stone on right side Deviated septum COVID LVH (left ventricular hypertrophy) Incisional hernia Plantar fasciitis Varicella zoster Renal lithiasis Vitamin D deficiency Iron deficiency anemia Obesity HTN (hypertension) Surgical History History of colonoscopy (~01/11/17) S/P left knee arthroscopy Family History Father High blood pressure Mother High blood pressure History of stroke Social History Household Members: Spouse Housing: House Are you a primary point of care specialist to a significant other at home: No Alcohol intake: current Alcohol intake frequency: holidays/special occasions only Patient Tobacco Use Status: Former Tobacco user Tobacco use type: Cigarette service: No Current occupational status: employed Cognitive needs: No Hearing needs: No Vision needs: Yes (cheaters) Questionnaire PHQ-9 Over the last 2 weeks, how often have you been bothered by any of the following problems? 1. Little interest or pleasure in doing things: not at all 2. Feeling down, depressed, or hopeless: not at all 3. Trouble falling or staying asleep, or sleeping too much: not at all 4. Feeling tired or having little energy: not at all 5. Poor appetite or overeating: not at all 6. Feeling bad about yourself - or that you are a failure or have let yourself or your family down: not at all 7. Trouble concentrating on things, such as reading the newspaper or watching television: not at all 8. Moving or speaking so slowly that other people could have noticed. Or the opposite - being so fidgety or restless that you have been moving around a lot more than usual: not at all 9. Thoughts that you would be better off or of hurting yourself in some way: not at all Total score: 0 Depression Screening Interpretation: Negative Depression Screening Done: Yes 78957 - PHQ-9 Billing: Yes Source: Developed by Drs. Ti Fay, Mora England, Scotty Hernandez and colleagues, with an educational racheal from [employer]. Thrive Questionnaire Date Thrive assessed: 11/06/24 I am a: Patient What is your living situation today?: I have a steady place to live Within the past 12 months, did the food you bought not last and you didn't have the money to get more?: Never true Within the past 12 months, did you worry whether your food would run out before you got money to buy more?: Never true Do you have trouble paying for medicines?: No Do you have trouble getting transportation to medical appointments?: No Do you have trouble paying your heating and electricity bill?: No Do you have trouble taking care of your child, family member or friend?: No Do you have trouble with day-to-day activities such as bathing, preparing meals, shopping, managing finances, etc.?: No Are you currently unemployed and looking for a job?: No Are you interested in more education?: No Please select the resources that you would like help with: None Currently or been in a relationship where the following occur: No concerns reported THRIVE Score: 0 AUDIT C Alcohol Use Questionnaire (AUDIT-C) 1. How often do you have a drink containing alcohol?: Monthly or less 2. How many drinks containing alcohol do you have on a typical day when you are drinking?: 1 or 2 3. How often do you have six or more drinks on one occasion?: Never Total Score: 1 Score Reviewed/Action Taken: No KEHINDE-7 AMB Questionnaire KEHINDE-7 Date KEHINDE - 7 assessed: 11/06/24 Feeling nervous, anxious, or on edge: 0 = Not at all Not being able to stop or control worryin = Not at all Worrying too much about different things: 0 = Not at all Trouble relaxin = Not at all Being so restless that it is hard to sit still: 0 = Not at all Becoming easily annoyed or irritable: 0 = Not at all Feeling afraid as if something awful might happen: 0 = Not at all Total KEHINDE-7 score (0-4 normal; 5-9 mild; 10-14 moderate; 15-21 severe): 0 Source: Developed by Drs. Ti Fay, Mora England, Scotty Hernandez and colleagues, with an educational racheal from [employer]. KEHINDE-7 Assessment Billing KEHINDE-7 Assessment Tool: KEHINDE-7 Assessment 60686 Review of Systems Const Details: - Constitutional: Denies fevers. - Gastrointestinal: Denies nausea, vomiting, or abdominal pain. - Genitourinary: Reports urinary discomfort and increased urinary frequency. Denies hematuria. Reports mild discomfort in the right kidney area. - Musculoskeletal: Denies back pain. All systems reviewed & are unremarkable except as noted in HPI and below Physical exam (Primary Care) Tobacco/Smoking Status: Tobacco use Status Tobacco use date assessed 11/06/24 07/15/25 11:39 Patient Tobacco Use Status Former Tobacco user 07/15/25 11:39 Tobacco use type Cigarette 07/15/25 11:39 PHQ-9: PHQ-9 Score PHQ-9: Total score 0 07/15/25 11:39 Depression Screening Interpretation: Negative Thrive Assessment: Date of Thrive Assessment Date Thrive assessed 11/06/24 07/15/25 11:39 Currently or been in a relationship where the following occur: No concerns reported Telehealth Telehealth Telehealth Platform: Telephone Location of provider rendering services: practice address Location of patient: address on file Patient Identification confirmed using: Name, : Yes Telehealth method: voice only Patient verbally consented to treatment: Yes Patient verbally consented to billing insurance company: Yes Patient informed of any privacy concerns related to visit: Yes Minutes spent on Phone/Video with Pt.: 25 Results Reviewed Results Reviewed: Reviewed both prior urine cultures from this month and discussed with patient about these results Coding Level of Care Code Tele Est Pt Level 4 (87330) Complex EM visit Add On G2211 Diagnoses Recurrent UTI N39.0 Additional Codes KEHINDE-7 Assessment Billing - KEHINDE-7 Assessment Tool: KEHINDE-7 Assessment 89971 ([id number]) PHQ-9 - 88989 - PHQ-9 Billing: Yes ([id number]) Assessment & Plan Assessment & Plan (1) Recurrent UTI: Code(s): N39.0 - Urinary tract infection, site not specified Category: Medical Plan: The patient presents with persistent urinary symptoms despite two separate, recent courses of antibiotics for two distinct cultured bacteria (Proteus and Gardnerella vaginalis). The persistence of symptoms raises concern for a third distinct infection, a resistant organism, or an underlying complicating factor such as his history of nephrolithiasis. A new urine sample for culture and sensitivity is required to guide appropriate antibiotic therapy. While awaiting culture results, the patient will be started on ciprofloxacin 500 mg, a medication he has received previously. Blood work will also be ordered to assess renal function and for signs of systemic infection. A physical exam of his kidneys will be performed when he comes to the office to provide the urine sample. A follow-up appointment is scheduled for 11/5. Plan Plan Patient was informed and verbally consented to the use of an ambient scribe for clinic note documentation during this visit. 1. Recurrent Urinary Tract Infection The patient presents with persistent urinary symptoms despite two separate, recent courses of antibiotics for two distinct cultured bacteria (Proteus and Gardnerella vaginalis). The persistence of symptoms raises concern for a third distinct infection, a resistant organism, or an underlying complicating factor such as his history of nephrolithiasis. A new urine sample for culture and sensitivity is required to guide appropriate antibiotic therapy. While awaiting culture results, the patient will be started on ciprofloxacin 500 mg, a medication he has received previously. Blood work will also be ordered to assess renal function and for signs of systemic infection. A physical exam of his kidneys will be performed when he comes to the office to provide the urine sample. A follow-up appointment is scheduled for 07/23. I conducted this visit via telehealth and informed the patient the call was being recorded. I reviewed the patient's recent history of two separate UTIs, the first with Proteus treated with levofloxacin and the second with Gardnerella vaginalis treated with Flagyl. Given his persistent symptoms, I explained the necessity of obtaining a new urine culture to identify the causative bacteria and ensure appropriate antibiotic selection, as it's possible a third different bacteria is present. I will prescribe ciprofloxacin 500 mg to start, but I advised him this therapy may be adjusted based on the forthcoming culture results. I have ordered blood work and will perform a kidney check when he comes in to provide the lab samples. The patient was agreeable to the plan and confirmed his pharmacy as [facility] in [place] and his upcoming appointment on 07/23. I advised him on return precautions, and he denied any current fever, back pain, nausea, or vomiting. Orders: Orders UA CC w/rflx Micro + Cult Today Z - Encounter for general adult medical examination without abnormal findings Complete Blood Count no Diff Today Z - Encounter for general adult medical examination without abnormal findings Magnesium Today Z. - Encounter for general adult medical examination without abnormal findings Comprehensive Met. Panel Today Z - Encounter for general adult medical examination without abnormal findings Medications: New ciprofloxacin HCl 500 mg PO BID 14 tabs 0RF 7 days Discontinued levofloxacin Discontinued Reason: Doctor's Order 250 mg PO DAILY 5 tabs 0RF uti 5 days metronidazole Discontinued Reason: Doctor's Order 500 mg PO BID 14 tabs 0RF 7 days Patient Instructions: - Please go to the lab to provide a urine sample for culture and have your blood drawn. - You do not need to fast for the blood work. - Start taking the ciprofloxacin 500 mg prescription that has been sent to [facility] in [place]. - Please be aware that we may need to change your antibiotic after we get the results from your urine test. - Keep your follow-up appointment scheduled for 07/23. - Please contact the office if you develop a fever, worsening back or belly pain, nausea, or vomiting.
--- OUTSIDE RECORDS SUMMARY | 2025-07-15 14:18 | XMS_ITS | Data Portability ---
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 Patient [...] Recorded Time Bilateral osteoarthri tis of knees [id number] 07 Active 2023 Karan Brooks PA-C [address], [place], [address], [facility] 4 13:33:45 Trochanteri c bursitis of right hip 9537738048453 00 Active 2023 Karan Brooks PA-C [address], [place], [address], [facility] 4 14:13:56 Osteoarthri tis of knee 499341314 Active 2023 Karan Brooks PA-C [address], [place], [address], [facility] 4 06:32:35 Pain of hip region 18832411 Active 2024 Karan Brooks PA-C [address], [place], [address], [facility] 5 10:59:31 Problem Notes None recorded. Procedures Surgical History Date Name Laterality Status Provider Name and Address Organization Details Recorded Time 06/03/20 25 Knee Kenalog 40 1cc Injection, Bilateral completed West Porter PA-C [address], [place], [address], [facility] 06/03/2025 16:06:34 06/03/20 25 JZHip Inj completed West Porter PA-C [address], [place], [address], [facility] 06/03/2025 16:06:30 03/05/20 25 JZHip Inj completed Karan Brooks PA-C [address], [place], [address], [facility] 03/05/2025 10:59:18 03/05/20 25 JZKNEE INJ Bryce completed Karan Brooks PA-C [address], [place], [address], [facility] 03/05/2025 10:59:10 11/28/19 25 JZHip Inj completed Karan Brooks PA-C [address], [place], [address], [facility] 11/27/2024 14:07:22 11/28/19 25 JZKNEE INJ Bryce completed Karan Brooks PA-C [address], [place], [address], [facility] 11/27/2024 14:07:18 08/30/20 24 JZHip Inj completed Karan Brooks PA-C [address], [place], [address], [facility] 08/30/2024 14:13:42 08/30/20 24 JZKNEE INJ Bryce completed Karan Brooks PA-C [address], [place], [address], [facility] 08/30/2024 14:13:38 05/31/20 24 JZHip Inj completed Karan Brooks PA-C [address], [place], [address], [facility] 05/31/2024 13:16:12 05/31/20 24 JZKNEE INJ Bryce completed Karan Brooks PA-C [address], [place], [address], [facility] 05/31/2024 13:16:04 02/07/20 24 Zilretta Knee Injection, Bilateral completed Karan Brooks PA-C [address], [place], [address], [facility] 02/07/2024 13:33:38 Gastrointestinal Surgery [facility] 06/03/2025 14:28:52 Orthopedic Surgery completed [facility] 06/03/2025 14:28:52 Imaging Results None recorded. Procedure Notes None recorded. Medical Equipment None Reported. Allergies Allergen ID Allergen Name Allergen Category Reaction Reaction Severity Criticality Documentation Date Start Date Code Code System Note Provider Name and Address Organization Details Recorded Time 98137 Iodinated contrast media (substanc e) medicatio n Not available Not available Not available 11/20/20232020 42900 2003 SNOMED Aller gyNam e: 'ivp dye'; Not Available [facility] 12:45:03 Medications Name Sig Start Date Stop [...] Updated DateTime 11/27/2024 172.72 cm 56 kg/m2 534617.99 dane Mitchell [facility] 11/27/2024 13:34:13 Date Recorded Body height Body mass index (BMI) Body weight Provider Name and Address Organization Details Last Updated DateTime 03/05/2025 172.72 cm 56 kg/m2 449372.99 dane Chery [facility] 03/05/2025 10:35:49 Date Recorded Body height Body mass index (BMI) Body weight Provider Name and Address Organization Details Last Updated DateTime 05/31/2024 172.72 cm 56 kg/m2 656002.99 dane Mitchell [facility] 05/31/2024 12:59:47 Date Recorded Body height Body mass index (BMI) Body weight Provider Name and Address Organization Details Last Updated DateTime 06/03/2025 172.72 cm 56 kg/m2 651708.99 dane Traviston [facility] 06/03/2025 14:29:01 Date Recorded Body height Body mass index (BMI) Body weight Provider Name and Address Organization Details Last Updated DateTime 08/30/2024 172.72 cm 56 kg/m2 577603.99 [facility] 08/30/2024 13:55:53 Social History Question Answer Notes LastModified by [employer] Details LastModified Time Tobacco Smoking Status [facility] 01/31/2024 12:54:35 What Is Your Relationship Status? Information not available 01/31/2024 Sex: Unknown Functional Status Question Answer Note LastModified by [employer] [employer] Details LastModified Time Do you use any [...] Disease N Heart Trouble N Heart Attack ([place]) N Gastrointestinal Disease N Cholesterol N Diabetes [...] ICD10 Code Diagnosis IMO Codes Diagnosis Note [id number] Karan Brooks PA-C [facility] [address] [place] [address] 02/07/2024 12:44:28 02/29/2024 13:15:18 Bilateral osteoarthritis of knees [id number] 29188 M17.0 [id number] ISIAH Rodriguez [address] [place] [address] 05/31/2024 12:51:08 06/24/2024 11:35:51 Bilateral osteoarthritis of knees 3856768614 41406 M17.0 Trochanter ic bursitis of right hip 0378759152 12730 M70.61 [id number] Karan Brooks PA-C [facility] [address] [place] [address] 08/30/2024 13:50:37 09/24/2024 07:51:59 Bilateral osteoarthritis of knees 1857429858 92662 M17.0 Trochanter ic bursitis of right hip 0344522457 62192 M70.61 [id number] Karan Brooks PA-C [facility] [address] [place] [address] 11/27/2024 13:25:31 12/12/2024 11:30:12 Bilateral osteoarthritis of knees 8178469430 73982 M17.0 [id number] ISIAH Rodriguez - [facility] [address] [place] [address] 03/05/2025 10:29:10 03/12/2025 15:46:24 Bilateral osteoarthritis of knees 0919906787 93125 M17.0 Pain of hip region 26227 002 M25.551 61110100 [id number] ISIAH Feliciano [address] [place] [address] 06/03/2025 14:22:34 06/13/2025 08:10:19 Primary gonarthrosis, bilateral 385424923 M17.0 [id number] Trochanter ic bursitis of right hip 7145573542 52749 M70.61 [id number] Health Concerns Section Related Observation LastModified by Organization Detai ls LastModified Time None Recorded Concern Status LastModified by Organization Details LastModified Time None Recorded Advance Directives Directive None Recorded Payers Insurance Date Sequence Insurance Name Policy Number Policy Ferris Covered Member ID Ferris Member ID Guarantor Name 06/13/2025 1 [facility] [id number] Jessie Kwok [id number] Helio Kwok 06/03/2025 [employer] Helio Kwok [id number] Helio Kwok 06/11/2024 1 UNSPECIFIED REMIT [...] gave good relief until recent. Problems ambulating. Aqbu-wcx-[id number] medications are helping somewhat but not significantly. [...] answered and addressed today. West Porter PA-C [address] [place], [place] [address] [address], [place], [address], [facility] 06/03/2025 16:06:59
== END 2025-07-15 11:29 | disposition home or self-care (01) ==
LOC: HO.HMCSH 11:04
PROVIDERS: PCP Physician Assistant Medical; Visit Provider Physician Assistant Medical
DX: N39.0 Urinary tract infection, site not specified (principal)

== ENCOUNTER 2025-07-23 09:42 | Outpatient (AMB) | payer BC, SELFPAY ==
[2025-07-23 09:49] VITALS: BP 158/74; PULSE 60; RESP 16; TEMP 36.6; O2SAT 99; BMI 47.9
--- NOTE | 2025-07-23 09:49 | A.OFFPC_ITS ---
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 Accompanied by: Self / Same As Patient Allergies Iodinated Contrast Media (IV CONTRAST) Allergy (Intermediate, Verified 07/23/25 12:04) HIVES blue dye Allergy (Verified 07/23/25 12:04) Hives Medication List - Last Reconciled 07/23/25 by Mahnaz Laurent PA-C allopurinol 300 mg PO DAILY amlodipine 5 mg PO DAILY betamethasone dipropionate 0.05% 1 appl topical BID PRN [centrum multivitamin 1 tab PO DAILY] ergocalciferol (vitamin D2) 1,250 mcg PO 2XW 3 months lisinopril 20 mg PO BID lorazepam 1 mg PO DAILY PRN metoprolol tartrate 50 mg PO BID [Vitamin C 1 tab PO DAILY] Tobacco use date assessed: 11/06/24 Dental Screening Dental Screen Date: 11/06/24 HPI 3 month fu HPI Details The patient is a 60-year-old male presenting for a three-month follow- up visit. He reports recent resolution of a urinary tract infection, which he states occurs about once a year. He had two different bacteria cultured, Proteus and Gardnerella, and ultimately improved with ciprofloxacin. A urine culture from 07/15 was negative. He reports some residual mild back pain near his kidney by the end of the day but denies fevers or hematuria. The patient takes allopurinol for prevention of uric acid kidney stones, not for gout. He has a history of a uric acid stone that was a significant medical event. Regarding weight management, the patient has been unable to obtain his Zepbound prescription for the past four weeks due to pharmacy stock and potential insurance preauthorization issues. His weight has increased from 312 pounds in October to 315 pounds at today's visit. Although he also has not had his medication over a month which may be the reason why he gained the extra 3 lb since October. He reports watching his diet and attempting some walking, but his exercise is limited by his need for knee replacements. His medications include lisinopril 20 mg twice a day, lorazepam daily, and metoprolol tartrate 50 mg twice a day. He was previously on amlodipine 10 mg but was taken off due to his blood pressure improving. 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 Past lab work showed normal hemoglobin A1c, PSA, thyroid, folate, and vitamin B12 levels. His HDL was low at 38, but LDL was good at 90, with a total cholesterol of 139. 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 - Family: Reports stress related to the recent of his uncle. - Diet: Reports watching what he eats fo r weight management. - Exercise: Activity is limited due to n eeding knee replacements, though he tries to walk. [facility] Medical History (Updated 07/23/25 @ 12:11 by Mahnaz Laurent PA-C) Psoriasis Recurrent UTI Exposure to Gardnerella vaginalis Dysuria Type 2 diabetes mellitus with hemoglobin A1c goal of less than 7.0% Morbid obesity with BMI of 45.0-49.9, adult Chronic low back pain Nocturnal hypoxemia due to obesity Somnolence, daytime Snoring DAISY (obstructive sleep apnea) Morbid obesity Kidney stone on right side Deviated septum COVID LVH (left ventricular hypertrophy) Incisional hernia Plantar fasciitis Varicella zoster Renal lithiasis Vitamin D deficiency Iron deficiency anemia Obesity HTN (hypertension) Surgical History History of colonoscopy (~01/11/17) S/P left knee arthroscopy Family History Father High blood pressure Mother High blood pressure History of stroke Social History Household Members: Spouse Housing: House Are you a primary home health care respiratory therapist to a significant other at home: No Alcohol intake: current Alcohol intake frequency: holidays/special occasions only Patient Tobacco Use Status: Former Tobacco user Tobacco use type: Cigarette service: No Current occupational status: employed Cognitive needs: No Hearing needs: No Vision needs: Yes (cheaters) Questionnaire PHQ-9 Over the last 2 weeks, how often have you been bothered by any of the following problems? 1. Little interest or pleasure in doing things: not at all 2. Feeling down, depressed, or hopeless: not at all 3. Trouble falling or staying asleep, or sleeping too much: not at all 4. Feeling tired or having little energy: not at all 5. Poor appetite or overeating: not at all 6. Feeling bad about yourself - or that you are a failure or have let yourself or your family down: not at all 7. Trouble concentrating on things, such as reading the newspaper or watching television: not at all 8. Moving or speaking so slowly that other people could have noticed. Or the opposite - being so fidgety or restless that you have been moving around a lot more than usual: not at all 9. Thoughts that you would be better off or of hurting yourself in some way: not at all Total score: 0 Depression Screening Interpretation: Negative Depression Screening Done: Yes 70773 - PHQ-9 Billing: Yes Source: Developed by Drs. Ti Fay, Moar England, Scotty Hernandez and colleagues, with an educational racheal from [employer]. Thrive Questionnaire Date Thrive assessed: 11/06/24 I am a: Patient What is your living situation today?: I have a steady place to live Within the past 12 months, did the food you bought not last and you didn't have the money to get more?: Never true Within the past 12 months, did you worry whether your food would run out before you got money to buy more?: Never true Do you have trouble paying for medicines?: No Do you have trouble getting transportation to medical appointments?: No Do you have trouble paying your heating and electricity bill?: No Do you have trouble taking care of your child, family member or friend?: No Do you have trouble with day-to-day activities such as bathing, preparing meals, shopping, managing finances, etc.?: No Are you currently unemployed and looking for a job?: No Are you interested in more education?: No Please select the resources that you would like help with: None Currently or been in a relationship where the following occur: No concerns reported THRIVE Score: 0 AUDIT C Alcohol Use Questionnaire (AUDIT-C) 1. How often do you have a drink containing alcohol?: Monthly or less 2. How many drinks containing alcohol do you have on a typical day when you are drinking?: 1 or 2 3. How often do you have six or more drinks on one occasion?: Never Total Score: 1 Score Reviewed/Action Taken: No KEHINDE-7 AMB Questionnaire KEHINDE-7 Date KEHINDE - 7 assessed: 11/06/24 Feeling nervous, anxious, or on edge: 0 = Not at all Not being able to stop or control worryin = Not at all Worrying too much about different things: 0 = Not at all Trouble relaxin = Not at all Being so restless that it is hard to sit still: 0 = Not at all Becoming easily annoyed or irritable: 0 = Not at all Feeling afraid as if something awful might happen: 0 = Not at all Total KEHINDE-7 score (0-4 normal; 5-9 mild; 10-14 moderate; 15-21 severe): 0 Source: Developed by Drs. Ti Fay, Mora England, Scotty Hernandez and colleagues, with an educational racheal from [employer]. KEHINDE-7 Assessment Billing KEHINDE-7 Assessment Tool: KEHINDE-7 Assessment 20549 Review of Systems Const Details: - Genitourinary: Reports resolution of recent UTI symptoms. Reports mild back pain in the kidney area at the end of the day. Denies fever or hematuria. - Constitutional: Denies fever. - Integumentary: Reports a small patch of psoriasis. - Musculoskeletal: Reports needing knee replacements which limits his ability to walk. - Cardiovascular: Denies leg swelling. - Neurologic/Psychiatric: Reports increased stress due to work and family ma tters. All systems reviewed & are unremarkable except as noted in HPI and below Physical exam (Primary Care) Vital Signs: Last Vital Signs Temp 97.9 F 07/23/25 09:49 Pulse 60 07/23/25 09:49 Resp 16 07/23/25 09:49 BP 158/74 H 07/23/25 09:49 Pulse Ox 99 07/23/25 09:49 Oxygen Delivery Method Room Air 07/23/25 09:49 Care Plan Goal for BP management: <140/90 patient to continue lisinopril 20 mg b.i.d., metoprolol tartrate 50 mg p.o. b.i.d. and will add amlodipine 5 mg daily BMI result Body Mass Index 47.9 BMI Assessment/Plan discussion: High BMI High, discussed plan: lifestyle, weight reduction, dietary, physical activity, alcohol moderation and other Tobacco/Smoking Status: Tobacco use Status Tobacco use date assessed 11/06/24 07/23/25 09:50 Patient Tobacco Use Status Former Tobacco user 07/23/25 09:50 Tobacco use type Cigarette 07/23/25 09:50 PHQ-9: PHQ-9 Score PHQ-9: Total score 0 07/23/25 09:50 Depression Screening Interpretation: Negative Thrive Assessment: Date of Thrive Assessment Date Thrive assessed 11/06/24 07/23/25 09:50 Currently or been in a relationship where the following occur: No concerns reported Const Other: Appearance: Alert. Oriented X3. No acute distress. Head: Normal external exam. Normocephalic. Atraumatic. Eyes: Pupils are equal, round, and reactive to light. Extraocular movements intact. Conjunctiva and sclera normal. Eyelids normal. Throat: Pharynx normal. Uvula midline. Moist mucous membranes. Neck: Normal inspection. Neck supple. Full range of motion. Cardiovascular: Normal heart rate and rhythm. Heart sound normal. No murmurs noted. Pulses normal throughout. Respiratory: No respiratory distress. Painless inspiration. Breath sounds normal. No wheezes/rales/rhonchi noted. No accessory muscle usage noted or decreased air movement noted. Back: Full range of motion noted. Skin: Skin warm and dry. Normal skin color. Normal skin turgor. Reports a touch of psoriasis no additional rashes/lesions/lacerations noted. Extremities: No lower extremity edema. Extremities exhibit normal range of motion. Neuro: Oriented X 3. No motor deficit. No sensory deficit. Reflexes normal. Office Procedures Flu Questionnaire Does the patient have a severe egg allergy?: No Does the patient have severe life threatening allergies?: No Does the patient have a fever or illness today?: No Has the patient ever had Guillain-[place] Syndrome?: No Has the patient ever had any past reaction to a flu shot?: No Immunizations Fluarix [id number] (PF) 45 mcg (15 mcg x 3)/0.5 mL IM syringe Performing Provider: Mahnaz Laurent PA-C [facility] [place] [facility] Documented (not given) by: NAHEED Lechuga on 07/23/25 09:58 Reason Not Given: Patient Refused Results Reviewed Results Reviewed: - Urinalysis/Culture: Past cultures grew Proteus and Gardnerella; the most recent culture on 07/15 was negative. - Labs: Recent labs were reviewed. - Kidney Function: BUN was 29 and noted to be chronically elevated. Creatinine was 0.85, and GFR was 60. - Hemoglobin A1c (April): 5.1%. - PSA: Normal. - Lipid Panel: Total cholesterol 139, LDL 90, HDL 38. - Other: Thyroid, folate, and vitamin B12 levels were normal. - CBC: White blood cell count was slightly elevated on 07/15, attributed to an active infection. - Inflammatory marker: Was elevated, attributed to an active infection. Coding Level of Care Code Est Pt Level 4 (38545) Complex EM visit Add On G2211 Diagnoses Recurrent UTI N39.0 HTN (hypertension) I10 Morbid obesity with BMI of 45.0-49.9, adult E66.01; Z68.42 Psoriasis L40.9 Additional Codes KEHINDE-7 Assessment Billing - KEHINDE-7 Assessment Tool: KEHINDE-7 Assessment 27630 ([id number]) PHQ-9 - 74464 - PHQ-9 Billing: Yes ([id number]) Time Spent (min) 50 Assessment & Plan Assessment & Plan (1) Recurrent UTI: Code(s): N39.0 - Urinary tract infection, site not specified Category: Medical Plan: The patient's recent urinary tract infection has resolved following a course of ciprofloxacin. Prior cultures showed Proteus and Gardnerella, but the most recent culture on 07/15 was negative. The patient was advised to call if symptoms of the infection return. (2) HTN (hypertension): Code(s): I10 - Essential (primary) hypertension Category: Medical Plan: Blood pressure was elevated at 150/84 mmHg, which may be related to current life stressors. Will add amlodipine 5 mg daily to the current regimen of lisinopril and metoprolol. The patient previously stopped amlodipine 10 mg because it lowered his blood pressure too much. He will monitor his blood pressure at home. (3) Morbid obesity with BMI of 45.0-49.9, adult: Code(s): E66.01 - Morbid (severe) obesity due to excess calories; Z68.42 - Body mass index [BMI] 45.0-49.9, adult Category: Medical Plan: The patient reports being unable to fill his Zepbound prescription for the last month due to pharmacy stock and possible insurance authorization issues. He has gained 3 pounds since October, and it was noted that insurance companies may deny coverage if weight loss is not achieved. He was advised to contact his pharmacy and/or insurance company to determine the cause of the delay. If he can obtain the medication, he was advised to consider restarting at half a dose since he has been off it for a month. (4) Psoriasis: Code(s): L40.9 - Psoriasis, unspecified Category: Medical Plan: The patient requested a refill for his psoriasis cream for a small affected area. A prescription for betamethasone ointment will be sent. Plan Plan Patient was informed and verbally consented to the use of an ambient scribe for clinic note documentation during this visit. 1. Recurrent Urinary Tract Infection The patient's recent urinary tract infection has resolved following a course of ciprofloxacin. Prior cultures showed Proteus and Gardnerella, but the most recent culture on 07/15 was negative. The patient was advised to call if symptoms of the infection return. 2. Hypertension Blood pressure was elevated at 150/84 mmHg, which may be related to current life stressors. Will add amlodipine 5 mg daily to the current regimen of lisinopril and metoprolol. The patient previously stopped amlodipine 10 mg because it lowered his blood pressure too much. He will monitor his blood pressure at home. 3. Obesity The patient reports being unable to fill his Zepbound prescription for the last month due to pharmacy stock and possible insurance authorization issues. He has gained 3 pounds since October, and it was noted that insurance companies may deny coverage if weight loss is not achieved. Although he also has not been on the medication for 1 month. He was advised to contact his pharmacy and/or insurance company to determine the cause of the delay. If he can obtain the medication, he was advised to consider restarting at lower dose since he has been off it for a month. 4. Psoriasis The patient requested a refill for his psoriasis cream for a small affected area. A prescription for betamethasone ointment will be sent. 5. Follow-Up The patient will follow up in three months. I saw the patient for a 3-month follow-up. We discussed that his recent urinary tract infection, which was caused by two separate organisms, has now resolved with ciprofloxacin, evidenced by a negative urine culture. I informed him that his recent labs were generally good, aside from a low HDL. His kidney function remains stable. His blood pressure was elevated at 150/84 mmHg, which we acknowledged could be related to recent life stressors. Based on this reading, I am adding amlodipine 5 mg daily to his current regimen, as he was previously on a higher dose of 10 mg which he reported dropped his pressure too low. We extensively discussed the issues he has had obtaining Zepbound for weight loss. I explained that because he has gained a small amount of weight since October, his insurance may be hesitant to approve the medication. I advised him to call the pharmacy and his insurance company to investigate the reason for the prescription delay, as my records show I sent the prescription on 07/14. I also refilled his betamethasone ointment for a small patch of psoriasis. He will monitor his blood pressure at home and return to clinic in 3 months for follow-up. Orders: Orders Influenza [id number] Immunization Today Z23 - Encounter for immunization Medications: New betamethasone dipropionate 0.05% 1 appl topical BID PRN 45 grams 6RF skin irritation amlodipine 5 mg PO DAILY 90 tabs 3RF Patient Instructions: - Your recent urinary tract infection has cleared up. Please call us if you notice symptoms like painful urination or back pain returning. - Your blood pressure was high today. I am starting you on a new medication, amlodipine 5 mg, to be taken once a day. Please monitor your blood pressure at home. - Continue trying to get your Zepbound prescription filled. You will need to call your pharmacy and possibly your insurance company to figure out why it is delayed. - I have sent a refill of your betamethasone ointment to the pharmacy for your psoriasis. - Please continue your other current medications as prescribed. - We will see you back in the office in 3 months for a follow-up visit.
--- OUTSIDE RECORDS SUMMARY | 2025-07-23 10:54 | XMS_ITS | Data Portability ---
Author Organization [place] - [facility], [facility] Address [address] [place] [address] Care Team Providers Care Fly Worker Name Role Phone PEDRO DILLON Primary Care [...] meloxicam 15 mg tablet 2024 025 [id number] [employer] [facility] #[id number], [address] [place], [id number], 06/03/2025 16:04:47 Patient TargetsNo targets recorded. Patient [...] Recorded Time Bilateral osteoarthri tis of knees [id number] 07 Active 2023 Karan Brooks PA-C [address], [place], [address], [facility] 4 13:33:45 Trochanteri c bursitis of right hip 6068591440745 00 Active 2023 Karan Brooks PA-C [address], [place], [address], [facility] 4 14:13:56 Osteoarthri tis of knee 508400084 Active 2023 Karan Brooks PA-C [address], [place], [address], [facility] 4 06:32:35 Pain of hip region 16921713 Active 2024 Karan Brooks PA-C [address], [place], [address], [facility] 5 10:59:31 Problem Notes None recorded. Procedures Surgical History Date Name Laterality Status Provider Name and Address Organization Details Recorded Time 06/03/20 25 Knee Kenalog 40 1cc Injection, Bilateral completed West Porter PA-C [address], [place], [address], [facility] 06/03/2025 16:06:34 06/03/20 25 JZHip Inj completed West Porter PA-C [address], [place], [address], [facility] 06/03/2025 16:06:30 03/05/20 25 JZHip Inj completed Karan Brooks PA-C [address], [place], [address], [facility] 03/05/2025 10:59:18 03/05/20 25 JZKNEE INJ Bryce completed Karan Brooks PA-C [address], [place], [address], [facility] 03/05/2025 10:59:10 11/28/19 25 JZHip Inj completed Karan Brooks PA-C [address], [place], [address], [facility] 11/27/2024 14:07:22 11/28/19 25 JZKNEE INJ Bryce completed Karan Brooks PA-C [address], [place], [address], [facility] 11/27/2024 14:07:18 08/30/20 24 JZHip Inj completed Karan Brooks PA-C [address], [place], [address], [facility] 08/30/2024 14:13:42 08/30/20 24 JZKNEE INJ Bryce completed Karan Brooks PA-C [address], [place], [address], [facility] 08/30/2024 14:13:38 05/31/20 24 JZHip Inj completed Karan Brooks PA-C [address], [place], [address], [facility] 05/31/2024 13:16:12 05/31/20 24 JZKNEE INJ Bryce completed Karan Brooks PA-C [address], [place], [address], [facility] 05/31/2024 13:16:04 02/07/20 24 Zilretta Knee Injection, Bilateral completed Karan Brooks PA-C [address], [place], [address], [facility] 02/07/2024 13:33:38 Gastrointestinal Surgery [facility] 06/03/2025 14:28:52 Orthopedic Surgery completed [facility] 06/03/2025 14:28:52 Imaging Results None recorded. Procedure Notes None recorded. Medical Equipment None Reported. Allergies Allergen ID Allergen Name Allergen Category Reaction Reaction Severity Criticality Documentation Date Start Date Code Code System Note Provider Name and Address Organization Details Recorded Time 62327 Iodinated contrast media (substanc e) medicatio n Not available Not available Not available 11/20/20232020 97099 2003 SNOMED Aller gyNam e: 'ivp dye'; Not Available [facility] 12:45:03 Medications Name Sig Start Date Stop [...] Updated DateTime 11/27/2024 172.72 cm 56 kg/m2 084760.99 dane Mitchell [facility] 11/27/2024 13:34:13 Date Recorded Body height Body mass index (BMI) Body weight Provider Name and Address Organization Details Last Updated DateTime 03/05/2025 172.72 cm 56 kg/m2 423633.99 dane Chery [facility] 03/05/2025 10:35:49 Date Recorded Body height Body mass index (BMI) Body weight Provider Name and Address Organization Details Last Updated DateTime 05/31/2024 172.72 cm 56 kg/m2 134102.99 dane Mitchell [facility] 05/31/2024 12:59:47 Date Recorded Body height Body mass index (BMI) Body weight Provider Name and Address Organization Details Last Updated DateTime 06/03/2025 172.72 cm 56 kg/m2 940158.99 dane Traviston [facility] 06/03/2025 14:29:01 Date Recorded Body height Body mass index (BMI) Body weight Provider Name and Address Organization Details Last Updated DateTime 08/30/2024 172.72 cm 56 kg/m2 844287.99 [facility] 08/30/2024 13:55:53 Social History Question Answer Notes LastModified by [employer] Details LastModified Time Tobacco Smoking Status [facility] 01/31/2024 12:54:35 What Is Your Relationship Status? Information not available 01/31/2024 Sex: Unknown Functional Status Question Answer Note LastModified by [employer] Details LastModified Time Do you use any [...] Disease N Heart Trouble N Heart Attack (OK) N Gastrointestinal Disease N Cholesterol N Diabetes [...] ICD10 Code Diagnosis IMO Codes Diagnosis Note [id number] Karan Brooks PA-C [facility] [address] [place] [address] 02/07/2024 12:44:28 02/29/2024 13:15:18 Bilateral osteoarthritis of knees 8211913163 42741 M17.0 [id number] ISIAH Rodriguez [address] [place] [place] [address] 05/31/2024 12:51:08 06/24/2024 11:35:51 Bilateral osteoarthritis of knees 6647085172 39606 M17.0 Trochanter ic bursitis of right hip 2048447449 32174 M70.61 [id number] Karan Brooks PA-C [facility] [address] [place] [place] [address] 08/30/2024 13:50:37 09/24/2024 07:51:59 Bilateral osteoarthritis of knees 5307402986 78047 M17.0 Trochanter ic bursitis of right hip 3910990042 79300 M70.61 [id number] [id number] Karan Brooks PA-C [facility] [address] [place] [place] [address] 11/27/2024 13:25:31 12/12/2024 11:30:12 Bilateral osteoarthritis of knees 5153227620 84865 M17.0 [id number] ISIAH Rodriguez - [place] [address] [place] [place] [address] 03/05/2025 10:29:10 03/12/2025 15:46:24 Bilateral osteoarthritis of knees 5984439729 58671 M17.0 Pain of hip region 65097 002 M25.551 [id number] [id number] ISIAH Feliciano [address] [place] [address] 06/03/2025 14:22:34 06/13/2025 08:10:19 Primary gonarthrosis, bilateral 514107006 M17.0 [id number] Trochanter ic bursitis of right hip 7654572116 86758 M70.61 [id number] Health Concerns Section Related Observation LastModified by Organization Detai ls LastModified Time None Recorded Concern Status LastModified by Organization Details LastModified Time None Recorded Advance Directives Directive None Recorded Payers Insurance Date Sequence Insurance Name Policy Number Policy Ferris Covered Member ID Ferris Member ID Guarantor Name 06/13/2025 1 [facility] [place] [id number] Jessie Kwok [id number] Helio Kwok 06/03/2025 [employer] Helio Kwok [id number] Helio Kwok 06/11/2024 1 UNSPECIFIED REMIT [...] gave good relief until recent. Problems ambulating. Nxyn-fks-rceynlb medications are helping somewhat but not significantly. [...] answered and addressed today. West Porter PA-C [address] [place], [place] [address] [address], [place], [address], [facility] 06/03/2025 16:06:59
[2025-07-23 12:03] VITALS: BP 150/84
== END 2025-07-23 10:23 | disposition home or self-care (01) ==
LOC: HO.HMCSH 09:42
PROVIDERS: PCP Physician Assistant Medical; Visit Provider Physician Assistant Medical
DX: N39.0 Urinary tract infection, site not specified (principal); I10 Essential (primary) hypertension; E66.01 Morbid (severe) obesity due to excess calories; Z68.42 Body mass index [BMI] 45.0-49.9, adult; L40.9 Psoriasis, unspecified; Z23 Encounter for immunization

== ENCOUNTER → 2025-07-23 09:42 | Outpatient (BNVA) | payer SELFPAY | PROVIDERS: PCP Physician Assistant Medical; Visit Provider Physician Assistant Medical | DX: I10 Essential (primary) hypertension (principal); E66.01 Morbid (severe) obesity due to excess calories; L40.9 Psoriasis, unspecified; Z68.42 Body mass index [BMI] 45.0-49.9, adult; Z87.440 Personal history of urinary (tract) infections; Z79.899 Other long term (current) drug therapy; Z28.21 Immunization not carried out because of patient refusal | CPT/HCPCS: 90471; 96127 ==